=== PATIENT | female | born 1935 | race American Indian/Alaskan Native ===

== ENCOUNTER 2019-08-24 15:15 | Emergency (ER) | payer MEDICARE, OTHER ==
[~2019-08-24] VITALS: Ht 165.1 cm; Wt 79.4 kg
[2019-08-24 16:02] LABS: BASOPHILS ABSOLUTE AUTO 0.04 K/mm3 (0.00-0.23); BASOPHILS PERCENT AUTO 1 % (0-2); EOSINOPHILS ABSOLUTE AUTO 0.27 K/mm3 (0.00-0.68); EOSINOPHILS PERCENT AUTO 3 % (0-6); Hematocrit 45.4 % (33.0-51.0); IMMATURE GRAN ABSOLUTE AUTO 0.01 K/mm3 (0.00-0.10); IMMATURE GRAN PERCENT AUTO 0 % (0-1); LYMPHOCYTES ABSOLUTE AUTO 2.34 K/mm3 (0.84-5.20); LYMPHOCYTES PERCENT AUTO 29 % (21-46); MONOCYTES ABSOLUTE AUTO 0.72 K/mm3 (0.16-1.47); MONOCYTES PERCENT AUTO 9 % (4-13); Mean Corpuscular HGB 31.3 pg (26.0-34.0); Mean Corpuscular Volume 95 fL (80-100); Mean Platelet Volume 9.3 fL (9.1-12.4); NEUTROPHILS ABSOLUTE AUTO 4.81 K/mm3 (1.96-9.15); NEUTROPHILS PERCENT AUTO 59 % (41-73); Platelet Count 269 K/mm3 (150-400); RDW Coefficient Variation 12.4 % (11.7-14.2); RDW Standard Deviation 42.9 fL (35.1-46.3); White Blood Cell Count 8.19 K/mm3 (4.00-11.30)
[2019-08-24 16:23] LABS: Alanine Aminotransfer (ALT/SGP 27 U/L (12-78); Albumin, Blood 3.7 g/dL (3.4-5.0); Albumin/Globulin Ratio 0.9 (0.8-1.8); Alk Phos 93 U/L (50-136); Anion Gap 6 mmol/L (6-16); Aspartate Aminotrans (AST/SGOT 19 U/L (12-37); Bilirubin, Total 0.4 mg/dL (0.1-1.0); Blood Urea Nitrogen 29 mg/dL (8-24); Bun/Creatinine Ratio 32.3 (12.0-20.0); CO2, Blood 26 mmol/L (21-32); Chloride, Blood 105 mmol/L (98-108); Glomerular Filtration Rate >60 (60-); Glucose, Blood 111 mg/dL (70-99); Potassium, Blood 4.4 mmol/L (3.5-5.5); Sodium, Blood 137 mmol/L (136-145); Total Protein, Blood 7.7 g/dL (6.4-8.2)
[2019-08-24] MEDS ORDERED: CARV3.125 (16:56)
[2019-08-24] MEDS ORDERED: LEVSOD50 PO (16:56)
[2019-08-24] MEDS ORDERED: Lisinopril2.5 MG (16:56)
== END 2019-08-24 18:55 | disposition home or self-care (01) ==
LOC: ER 15:15
PROVIDERS: Physician Assistant
DX: I63.9 Cerebral infarction, unspecified (principal); Z88.5 Allergy status to narcotic agent
CPT/HCPCS: 70450; 80053; 85025; 93005; 93010; 99284-25

== ENCOUNTER 2020-11-13 20:41 | Inpatient (IN) | payer MEDICARE, OTHER ==
[~2020-11-13] VITALS: Ht 157.5 cm; Wt 77.1 kg
[~2020-11-13 20:41] MED LIST: CARV3.125 PO; EUTHYROX50 MCG PO; Lisinopril2.5 MG PO
[2020-11-13 21:02] LABS: Hematocrit 39.8 % (33.0-51.0); Mean Corpuscular HGB 32.3 pg (26.0-34.0); Mean Corpuscular HGB Conc 35.2 g/dL (31.5-36.5); Mean Corpuscular Volume 92 fL (80-100); Mean Platelet Volume 9.9 fL (9.1-12.4); Platelet Count 179 K/mm3 (150-400); RDW Coefficient Variation 12.3 % (11.7-14.2); RDW Standard Deviation 41.6 fL (35.1-46.3); Red Blood Cell Count 4.34 M/mm3 (3.80-5.20)
[2020-11-13 21:21] LABS: Alanine Aminotransfer (ALT/SGP 20 U/L (12-78); Albumin/Globulin Ratio 0.7 (0.8-1.8); Alk Phos 103 U/L (50-136); Anion Gap 10 mmol/L (6-16); Aspartate Aminotrans (AST/SGOT 17 U/L (12-37); Bilirubin, Total 0.8 mg/dL (0.1-1.0); Blood Urea Nitrogen 32 mg/dL (8-24); Bun/Creatinine Ratio 26.2 (12.0-20.0); CO2, Blood 22 mmol/L (21-32); Calcium, Blood 8.4 mg/dL (8.5-10.1); Chloride, Blood 103 mmol/L (98-108); Creatinine, Blood 1.22 mg/dL (0.40-1.00); Ethanol (Alcohol), Blood, Med <3 mg/dL; Globulin, Blood 4.2 g/dL (2.2-4.0); Glomerular Filtration Rate 45 (60-); Glucose, Blood 167 mg/dL (70-99); Potassium, Blood 4.2 mmol/L (3.5-5.5); Sodium, Blood 135 mmol/L (136-145); Total Protein, Blood 7.2 g/dL (6.4-8.2)
[2020-11-13 21:33] LABS: BAND PERCENT MAN 18 % (0-8); BASOPHILS PERCENT MAN 0 % (0-2); EOSINOPHILS ABSOLUTE MAN 0.07 K/mm3 (0.00-0.68); EOSINOPHILS PERCENT MAN 1 % (0-6); LYMPHOCYTES ABSOLUTE MAN 0.43 K/mm3 (0.84-5.20); LYMPHOCYTES PERCENT MAN 6 % (21-46); MONOCYTES ABSOLUTE MAN 0.07 K/mm3 (0.16-1.47); MONOCYTES PERCENT MAN 1 % (4-13); NEUTROPHILS ABSOLUTE MAN 6.62 K/mm3 (1.96-9.15); SEG NEUTROPHILS PERCENT MAN 74 % (41-73); TOTAL CELLS COUNTED 100
[2020-11-13 23:02] LABS: U Amphetamine Screen Not Detected; U Barbituate Screen Not Detected; U Benzodiazapine Screen Not Detected; U Buprenorphine Screen Not Detected; U Cannabinoids Screen Not Detected; U Cocaine Screen Not Detected; U Methadone Screen Not Detected; U Methamphetamine Screen Not Detected; U Opiates Screen Not Detected; U Oxycodone Screen Not Detected; U Phencyclidine Screen Not Detected; U Propoxyphene Screen Not Detected
[2020-11-13 23:05] LABS: Source, Urine Catheter
[2020-11-13 23:06] LABS: Bilirubin, Urine Neg (Neg); Blood, Urine 5+ (Neg); Glucose Qualitative, Urine Neg (Neg); Ketones, Urine Neg (Neg); Leukocyte Esterase, Urine 3+ (Neg); Nitrite, Urine Pos (Neg); Protein, Urine 4+ (Neg); Specific Gravity, Urine 1.015 (1.003-1.022); Urobilinogen, Urine NORM (Normal)
[2020-11-13 23:11] LABS: Appearance, Urine Cloudy (Clear); Color, Urine Yellow (P-Yellow)
[2020-11-13 23:12] LABS: Bacteria Many /hpf; Squamous Epithelial Cells Rare /hpf (Few); White Blood Cells, Urine TNTC /hpf (0-5)
--- NOTE | 2020-11-14 06:21 | NUR ---
SHIFT SUMMARY PT IS ALERT AND ORIENTED. PT IS VERY [place]; AT BESIDE TO ASSIST WITH MEDICAL HX AND COMMUNICATION WITH PT. VITALS ARE STABLE AND THERE HAVE BEEN NO ACUTE CHANGES FOR PT SINCE ARRIVAL TO THE FLOOR AT 0245. PT HAS WEAKNESS DUE TO CONDITION BUT AT BASELINE SHE IS ACTIVE. STATES THAT PT HAS DIAGNOSIS OF DM2 AND HYPOTHYROIDISM; WHICH SHE SELF TREATS USING NATURAL TREATMENTS, EXERCISE, AND HEALTHY DIET. SHE DOES MONITOR HER BLOOD SUGARS DAILY.
--- NOTE | 2020-11-14 07:55 | NUR ---
0715 BEDSIDE REPORT received from Kianna. Pt appears to be sleeping in dimly lit room
[2020-11-14 09:02] LABS: Hematocrit 40.1 % (33.0-51.0); Hemoglobin 14.3 g/dL (11.5-16.0); Mean Corpuscular HGB 32.2 pg (26.0-34.0); Mean Corpuscular HGB Conc 35.7 g/dL (31.5-36.5); Mean Corpuscular Volume 90 fL (80-100); Mean Platelet Volume 10.1 fL (9.1-12.4); Platelet Count 158 K/mm3 (150-400); RDW Coefficient Variation 12.5 % (11.7-14.2); RDW Standard Deviation 41.5 fL (35.1-46.3); Red Blood Cell Count 4.44 M/mm3 (3.80-5.20); White Blood Cell Count 25.42 K/mm3 (4.00-11.30)
[2020-11-14 09:22] LABS: Albumin, Blood 2.8 g/dL (3.4-5.0); Albumin/Globulin Ratio 0.7 (0.8-1.8); Bilirubin, Total 0.6 mg/dL (0.1-1.0); Bun/Creatinine Ratio 21.2 (12.0-20.0); Creatinine, Blood 1.56 mg/dL (0.40-1.00); Globulin, Blood 3.9 g/dL (2.2-4.0); Potassium, Blood 4.4 mmol/L (3.5-5.5); Total Protein, Blood 6.7 g/dL (6.4-8.2)
[2020-11-14 09:41] LABS: BAND PERCENT MAN 19 % (0-8); BASOPHILS PERCENT MAN 0 % (0-2); EOSINOPHILS PERCENT MAN 0 % (0-6); LYMPHOCYTES ABSOLUTE MAN 0.76 K/mm3 (0.84-5.20); LYMPHOCYTES PERCENT MAN 3 % (21-46); METAMYELOCYTE ABSOLUTE MAN 0.25 K/mm3 (0.00-0.00); METAMYELOCYTE PERCENT MAN 1 % (0-0); MONOCYTES ABSOLUTE MAN 1.01 K/mm3 (0.16-1.47); MONOCYTES PERCENT MAN 4 % (4-13); NEUTROPHILS ABSOLUTE MAN 23.38 K/mm3 (1.96-9.15); SEG NEUTROPHILS PERCENT MAN 73 % (41-73); TOTAL CELLS COUNTED 100
--- NOTE | 2020-11-14 10:03 | NUR ---
LOVENOX HELD; Pt's states that she had severe hallucinations to injected and oral blood thinners, and that the public school teacher told the pt not to take them.
--- NOTE | 2020-11-14 10:08 | NUR ---
Echocardiogram completed.
[2020-11-14] MEDS ORDERED: DORZOPSO BOTHEYES (14:49)
[2020-11-14] MEDS ORDERED: LATA.005SO BOTHEYES (14:50)
[2020-11-14] MEDS ORDERED: TIMDOROPSO BOTHEYES (14:52)
--- NOTE | 2020-11-14 15:18 | NUR ---
Pt's here, updated on pt condition and plan of treatment. The pt appears to be sleeping; states he thinks that the two rounds of therapy today were tiring for her. cup of coffee provided for the pt's at this time.
--- NOTE | 2020-11-14 18:20 | NUR ---
Pt 's told PCT that he had given the pt Coreg 6.23 at dinner (home medication) as well as her eye drops from home. The pt's then left before I was informed of this. Instructed pt not to take any medications from home while in the hospital.
--- NOTE | 2020-11-14 18:45 | NUR ---
LFA IV infiltrated and RN preceptor removed. New IV placed in RA above wrist.
--- NOTE | 2020-11-14 19:34 | NUR ---
Bedside report given to Sandro.
[2020-11-15 04:04] LABS: BASOPHILS ABSOLUTE AUTO 0.03 K/mm3 (0.00-0.23); BASOPHILS PERCENT AUTO 0 % (0-2); EOSINOPHILS ABSOLUTE AUTO 0.03 K/mm3 (0.00-0.68); EOSINOPHILS PERCENT AUTO 0 % (0-6); Hematocrit 35.3 % (33.0-51.0); Hemoglobin 12.4 g/dL (11.5-16.0); IMMATURE GRAN ABSOLUTE AUTO 0.11 K/mm3 (0.00-0.10); IMMATURE GRAN PERCENT AUTO 1 % (0-1); LYMPHOCYTES ABSOLUTE AUTO 0.85 K/mm3 (0.84-5.20); LYMPHOCYTES PERCENT AUTO 5 % (21-46); MONOCYTES ABSOLUTE AUTO 0.82 K/mm3 (0.16-1.47); MONOCYTES PERCENT AUTO 5 % (4-13); Mean Corpuscular HGB 32.3 pg (26.0-34.0); Mean Corpuscular HGB Conc 35.1 g/dL (31.5-36.5); Mean Corpuscular Volume 92 fL (80-100); Mean Platelet Volume 10.9 fL (9.1-12.4); NEUTROPHILS ABSOLUTE AUTO 14.66 K/mm3 (1.96-9.15); NEUTROPHILS PERCENT AUTO 89 % (41-73); Platelet Count 150 K/mm3 (150-400); RDW Coefficient Variation 12.8 % (11.7-14.2); RDW Standard Deviation 43.3 fL (35.1-46.3); Red Blood Cell Count 3.84 M/mm3 (3.80-5.20)
[2020-11-15 04:30] LABS: Albumin, Blood 2.4 g/dL (3.4-5.0); Anion Gap 7 mmol/L (6-16); Blood Urea Nitrogen 41 mg/dL (8-24); CO2, Blood 24 mmol/L (21-32); Calcium, Blood 7.8 mg/dL (8.5-10.1); Chloride, Blood 106 mmol/L (98-108); Creatinine, Blood 1.52 mg/dL (0.40-1.00); Glomerular Filtration Rate 35 (60-); Glucose, Blood 131 mg/dL (70-99); Phosphorus, Blood 3.3 mg/dL (2.5-4.9); Sodium, Blood 137 mmol/L (136-145)
--- NOTE | 2020-11-15 06:38 | NUR ---
SHIFT SUMMARY PT IS A/O. VERY [place] HAS A DEVICE AT BEDSIDE. VITALS STABLE WITH NO ACUTE CHANGES. DENIES CHEST PAIN OR SOB. PT IS SBA WITH FWW TO BATHROOM.
--- NOTE | 2020-11-16 02:48 | NUR ---
UPDATE PATIENT PLEASENT AND COOPERATIVE. PATIENT SBA WITH FWW TO THE BATHROOM. PATIENT HAS APPEARED TO SLEEP WELL THROUGHOUT THE NIGHT SO FAR. PATIENT RECEIVED ROOM ASSIGNMENT ON MEDICAL FLOOR. ROOM 358. REPORT GIVEN TO KRISTIE LUCIA AT THIS TIME.
--- NOTE | 2020-11-16 03:11 | NUR ---
TRANSFER NOTE PATIENT TRANSFERED UP TO NEW ROOM VIA WHEELCHAIR BY TENTER FEEDER. ALL BELONGING GATHERED AND SENT WITH PATIENT. PATIENT WEARING HER EAR PIECE AND MICROPHONE SET UPON TRANSFER.
--- NOTE | 2020-11-16 03:50 | NUR ---
0300 REPORT RECEIVED FROM KRISTIE MICHEL; PT ARRIVED VIA WHEELCHAIR FROM PCU; ALERT AND ORIENTED X 4; BED ALARM APPLIED FOR SAFETY.
--- NOTE | 2020-11-16 04:32 | NUR ---
SHIFT SUMMARY: 85 Y/O FEMALE RESTED COMFORTABLE SINCE ARRIVAL TO UNIT FROM PCU; DENIES PAIN OR NAUSEA; BED ALARM APPLIED FOR SAFETY, BED LOW POSITION WITH CALL LIGHT AT SIDE.
[2020-11-16] MEDS ORDERED: VISBIOME PROBI1 EACH PO (13:54)
[2020-11-16] MEDS ORDERED: CEPH500 PO (13:55)
--- NOTE | 2020-11-16 16:02 | NUR ---
PT AOX3 AND COOPERATIVE OF CARE. PT HAD ALL PAPERWORK AND EDUCTIONAL MATERIAL REVIEWED AND SIGNED. WAS IN ROOM TO HELP UNDERSTAND INSTRUCTIONS. PT HAD ALL PERSONAL MATERIAL COLLECTED AND TAKEN WITH HER. PT ESCORTED BY AID VIA WHEEL CHAIR TO N ENTRANCE. NO DISTRESS NOTED.
== END 2020-11-16 15:41 | disposition home or self-care (01) | DRG 871 ==
LOC: ER 20:41 → PCU 11-14 02:24 → MEDS 11-16 03:15
PROVIDERS: Internal Medicine; Student in an Organized Health Care Education/Training Program; ADMIT Internal Medicine
DX: A41.51 Sepsis due to Escherichia coli [E. coli] (principal); G92 Toxic encephalopathy; N12 Tubulo-interstitial nephritis, not specified as acute or chronic; N17.9 Acute kidney failure, unspecified; E87.2 Acidosis; Z86.73 Personal history of transient ischemic attack (TIA), and cerebral infarction without residual deficits; E03.9 Hypothyroidism, unspecified; I10 Essential (primary) hypertension; H40.9 Unspecified glaucoma; E11.9 Type 2 diabetes mellitus without complications; R65.20 Severe sepsis without septic shock
CPT/HCPCS: 36415; 51701; 70450; 71045; 73502; 80053; 80069; 81001; 83605; 83690; 83880; 85025; 87077; 87086; 87186; 93005; 93010; 93306; 96361-59; 96365-59; 96375-59; 97110; 97116; 97162; 97165; 97530; 97535; 99285-25; A9270; G0480; J0696; J2405; J7030; J7120

== ENCOUNTER 2021-04-23 15:54 | Emergency (ER) | payer MEDICARE, OTHER ==
[~2021-04-23] VITALS: Ht 157.5 cm; Wt 72.6 kg
[~2021-04-23 15:54] MED LIST changes: +CEPH500 PO; +DORZOPSO BOTHEYES; +LATA.005SO BOTHEYES; +TIMDOROPSO BOTHEYES; +VISBIOME PROBI1 EACH PO
== END 2021-04-23 18:23 | disposition home or self-care (01) ==
LOC: ER 15:54
DX: S06.0X0A Concussion without loss of consciousness, initial encounter (principal); S16.1XXA Strain of muscle, fascia and tendon at neck level, initial encounter; S29.012A Strain of muscle and tendon of back wall of thorax, initial encounter; Z88.5 Allergy status to narcotic agent; Z88.8 Allergy status to other drugs, medicaments and biological substances; Z79.899 Other long term (current) drug therapy; Z86.73 Personal history of transient ischemic attack (TIA), and cerebral infarction without residual deficits; W01.0XXA Fall on same level from slipping, tripping and stumbling without subsequent striking against object, initial encounter
CPT/HCPCS: 70450; 72125; 99283-25

== ENCOUNTER → 2022-12-22 | Outpatient (CLI) | payer MEDICARE, OTHER ==
[2022-12-22 15:25] LABS: Bun/Creatinine Ratio 28.8 (12.0-20.0); Calcium, Blood 9.3 mg/dL (8.5-10.1); Creatinine, Blood 1.18 mg/dL (0.40-1.00); Potassium, Blood 4.3 mmol/L (3.5-5.5)
== END | disposition home or self-care (01) ==
LOC: LAB SHORT 13:12
PROVIDERS: Nurse Practitioner Family
DX: N18.30 Chronic kidney disease, stage 3 unspecified (principal)
CPT/HCPCS: 80048

== ENCOUNTER 2023-04-12 12:02 | Emergency (ER) | payer MEDICARE, OTHER ==
[~2023-04-12] VITALS: Ht 160 cm; Wt 74.4 kg
[2023-04-12 12:33] LABS: Hematocrit 39.8 % (33.0-51.0); Hemoglobin 13.8 g/dL (11.5-16.0); Mean Corpuscular HGB 32.2 pg (26.0-34.0); Mean Corpuscular HGB Conc 34.7 g/dL (31.5-36.5); Mean Corpuscular Volume 93 fL (80-100); Platelet Count 195 K/mm3 (150-400); RDW Coefficient Variation 12.7 % (11.7-14.2); RDW Standard Deviation 43.8 fL (35.1-46.3); Red Blood Cell Count 4.28 M/mm3 (3.80-5.20); White Blood Cell Count 11.66 K/mm3 (4.00-11.30)
[2023-04-12 12:53] LABS: BAND PERCENT MAN 7 % (0-8); BASOPHILS ABSOLUTE MAN 0.23 K/mm3 (0.00-0.23); BASOPHILS PERCENT MAN 2 % (0-2); EOSINOPHILS PERCENT MAN 0 % (0-6); LYMPHOCYTES ABSOLUTE MAN 0.46 K/mm3 (0.84-5.20); LYMPHOCYTES PERCENT MAN 4 % (21-46); MONOCYTES ABSOLUTE MAN 0.34 K/mm3 (0.16-1.47); MONOCYTES PERCENT MAN 3 % (4-13); NEUTROPHILS ABSOLUTE MAN 10.61 K/mm3 (1.96-9.15); SEG NEUTROPHILS PERCENT MAN 84 % (41-73); TOTAL CELLS COUNTED 100
[2023-04-12 12:56] LABS: Albumin, Blood 3.2 g/dL (3.4-5.0); Albumin/Globulin Ratio 0.7 (0.8-1.8); Bilirubin, Total 0.7 mg/dL (0.1-1.0); Bun/Creatinine Ratio 25.2 (12.0-20.0); Calcium, Blood 8.8 mg/dL (8.5-10.1); Creatinine, Blood 1.27 mg/dL (0.40-1.00); Globulin, Blood 4.3 g/dL (2.2-4.0); Potassium, Blood 4.5 mmol/L (3.5-5.5); Total Protein, Blood 7.5 g/dL (6.4-8.2)
[2023-04-12 16:30] VITALS: BP 116/72
== END 2023-04-12 17:16 | disposition home or self-care (01) ==
LOC: ER 12:02
PROVIDERS: Emergency Medicine
DX: S93.602A Unspecified sprain of left foot, initial encounter (principal); M79.671 Pain in right foot; M25.552 Pain in left hip; M25.571 Pain in right ankle and joints of right foot; W19.XXXA Unspecified fall, initial encounter; I10 Essential (primary) hypertension; E03.9 Hypothyroidism, unspecified; E11.9 Type 2 diabetes mellitus without complications; Z88.5 Allergy status to narcotic agent; Z79.899 Other long term (current) drug therapy; Z95.0 Presence of cardiac pacemaker
CPT/HCPCS: 70450; 73502; 73610; 73630; 80053; 83880; 85025; 99284-25

== ENCOUNTER → 2023-05-10 | Outpatient (CLI) | payer MEDICARE, OTHER | END | disposition home or self-care (01) | LOC: LAB 19:15 → LAB SHORT 19:15 | DX: M79.672 Pain in left foot (principal) | CPT/HCPCS: 84550 ==

== ENCOUNTER → 2023-07-06 | Outpatient (CLI) | payer MEDICARE, OTHER ==
[2023-07-06 19:54] LABS: BASOPHILS ABSOLUTE AUTO 0.05 K/mm3 (0.00-0.23); BASOPHILS PERCENT AUTO 1 % (0-2); EOSINOPHILS PERCENT AUTO 5 % (0-6); Hematocrit 40.6 % (33.0-51.0); Hemoglobin 13.7 g/dL (11.5-16.0); IMMATURE GRAN ABSOLUTE AUTO 0.01 K/mm3 (0.00-0.10); IMMATURE GRAN PERCENT AUTO 0 % (0-1); LYMPHOCYTES ABSOLUTE AUTO 2.22 K/mm3 (0.84-5.20); LYMPHOCYTES PERCENT AUTO 29 % (21-46); MONOCYTES ABSOLUTE AUTO 0.59 K/mm3 (0.16-1.47); MONOCYTES PERCENT AUTO 8 % (4-13); Mean Corpuscular HGB 30.6 pg (26.0-34.0); Mean Corpuscular HGB Conc 33.7 g/dL (31.5-36.5); Mean Corpuscular Volume 91 fL (80-100); NEUTROPHILS ABSOLUTE AUTO 4.49 K/mm3 (1.96-9.15); NEUTROPHILS PERCENT AUTO 58 % (41-73); Platelet Count 253 K/mm3 (150-400); RDW Coefficient Variation 13.4 % (11.7-14.2); RDW Standard Deviation 44.7 fL (35.1-46.3); Red Blood Cell Count 4.48 M/mm3 (3.80-5.20); White Blood Cell Count 7.76 K/mm3 (4.00-11.30)
[2023-07-06 20:20] LABS: Thyroid Stimulating Hormone 1.66 uIU/mL (0.360-4.800); Uric Acid, Blood 8.8 mg/dL (2.6-6.0)
[2023-07-07 13:58] LABS: Percent Saturation 19.3 % (15.0-50.0)
== END | disposition home or self-care (01) ==
LOC: LAB 17:44 → LAB SHORT 17:44
PROVIDERS: Nurse Practitioner Family
DX: E03.9 Hypothyroidism, unspecified (principal); M10.9 Gout, unspecified; D72.829 Elevated white blood cell count, unspecified; R73.03 Prediabetes
CPT/HCPCS: 82728; 83036; 83540; 83550; 84443; 84550; 85025

== ENCOUNTER 2023-08-20 11:01 | Inpatient (IN) | payer MEDICARE, OTHER ==
[~2023-08-20] VITALS: Ht 157.5 cm; Wt 66.0 kg
[2023-08-20 11:38] LABS: BASOPHILS ABSOLUTE AUTO 0.03 K/mm3 (0.00-0.23); BASOPHILS PERCENT AUTO 0 % (0-2); EOSINOPHILS ABSOLUTE AUTO 0.02 K/mm3 (0.00-0.68); EOSINOPHILS PERCENT AUTO 0 % (0-6); Hematocrit 43.7 % (33.0-51.0); Hemoglobin 15.1 g/dL (11.5-16.0); IMMATURE GRAN ABSOLUTE AUTO 0.02 K/mm3 (0.00-0.10); IMMATURE GRAN PERCENT AUTO 0 % (0-1); LYMPHOCYTES PERCENT AUTO 21 % (21-46); MONOCYTES ABSOLUTE AUTO 0.48 K/mm3 (0.16-1.47); MONOCYTES PERCENT AUTO 5 % (4-13); Mean Corpuscular HGB 30.7 pg (26.0-34.0); Mean Corpuscular HGB Conc 34.6 g/dL (31.5-36.5); Mean Corpuscular Volume 89 fL (80-100); Mean Platelet Volume 9.5 fL (9.1-12.4); NEUTROPHILS ABSOLUTE AUTO 6.59 K/mm3 (1.96-9.15); NEUTROPHILS PERCENT AUTO 73 % (41-73); Platelet Count 225 K/mm3 (150-400); RDW Coefficient Variation 13.1 % (11.7-14.2); RDW Standard Deviation 42.5 fL (35.1-46.3); Red Blood Cell Count 4.92 M/mm3 (3.80-5.20); White Blood Cell Count 9.04 K/mm3 (4.00-11.30)
[2023-08-20 12:21] LABS: Albumin, Blood 3.5 g/dL (3.4-5.0); Albumin/Globulin Ratio 0.9 (0.8-1.8); Bilirubin, Total 0.6 mg/dL (0.1-1.0); Bun/Creatinine Ratio 28.8 (12.0-20.0); Creatinine, Blood 1.11 mg/dL (0.40-1.00); Magnesium, Blood 2.3 mg/dL (1.6-2.4); Potassium, Blood 4.6 mmol/L (3.5-5.5); Total Protein, Blood 7.5 g/dL (6.4-8.2)
[2023-08-20 14:03] LABS: Source, Urine Clean Catch
[2023-08-20 14:07] LABS: Appearance, Urine Cloudy (Clear); Bilirubin, Urine Neg (Neg); Blood, Urine Neg (Neg); Color, Urine Yellow (P-Yellow); Glucose Qualitative, Urine Neg (Neg); Ketones, Urine Neg (Neg); Leukocyte Esterase, Urine 2+ (Neg); Nitrite, Urine Pos (Neg); Protein, Urine 2+ (Neg); Urobilinogen, Urine NORM (Normal); pH, Urine 6.5 (5.0-8.0)
[2023-08-20 14:21] LABS: Bacteria Many /hpf; Red Blood Cells, Urine 0-2 /hpf (0-2); Squamous Epithelial Cells Few /hpf (Few)
[2023-08-20 16:24] VITALS: BP 184/68
[2023-08-20 17:10] LABS: Anti-Xa UFH, PHA Monitoring <0.10 IU/mL; International Normalized Ratio 0.98; Prothrombin Time Results 10.3 Sec (9.7-11.5)
--- NOTE | 2023-08-20 18:24 | NUR ---
TRANSFER TO MEDICAL FLOOR AT 1425- ARRIVED IN STABLE CONDITION AFTER RECEIVING REPORT FROM ER NURSE.
--- NOTE | 2023-08-20 18:25 | NUR ---
SUMMARY- PT AAOX4 SINCE ADMISSION. PT ANSWERED ALL ORIENTATION QUESTIONS CORRECTLY. SLOW TO RESPOND AND SEVERELY [place]. BEDREST THIS SHIFT. NO COMPLAINTS OF CHEST PAIN/PRESSURE. PT ON HEPARIN DRIP CURRENTLY.
[2023-08-20 21:01] VITALS: BP 145/51
[2023-08-21 01:54] LABS: BASOPHILS ABSOLUTE AUTO 0.07 K/mm3 (0.00-0.23); BASOPHILS PERCENT AUTO 1 % (0-2); EOSINOPHILS ABSOLUTE AUTO 0.22 K/mm3 (0.00-0.68); EOSINOPHILS PERCENT AUTO 3 % (0-6); Hematocrit 41.8 % (33.0-51.0); Hemoglobin 14.2 g/dL (11.5-16.0); IMMATURE GRAN ABSOLUTE AUTO 0.04 K/mm3 (0.00-0.10); IMMATURE GRAN PERCENT AUTO 1 % (0-1); LYMPHOCYTES ABSOLUTE AUTO 2.57 K/mm3 (0.84-5.20); LYMPHOCYTES PERCENT AUTO 32 % (21-46); MONOCYTES ABSOLUTE AUTO 0.67 K/mm3 (0.16-1.47); MONOCYTES PERCENT AUTO 8 % (4-13); Mean Corpuscular HGB 31.1 pg (26.0-34.0); Mean Corpuscular Volume 92 fL (80-100); NEUTROPHILS ABSOLUTE AUTO 4.57 K/mm3 (1.96-9.15); NEUTROPHILS PERCENT AUTO 56 % (41-73); Platelet Count 204 K/mm3 (150-400); RDW Coefficient Variation 13.4 % (11.7-14.2); RDW Standard Deviation 45.2 fL (35.1-46.3); Red Blood Cell Count 4.56 M/mm3 (3.80-5.20); White Blood Cell Count 8.14 K/mm3 (4.00-11.30)
[2023-08-21 01:59] LABS: Albumin, Blood 3.3 g/dL (3.4-5.0); Albumin/Globulin Ratio 0.8 (0.8-1.8); Bilirubin, Total 0.5 mg/dL (0.1-1.0); Bun/Creatinine Ratio 28.6 (12.0-20.0); Calcium, Blood 8.6 mg/dL (8.5-10.1); Creatinine, Blood 1.12 mg/dL (0.40-1.00); Globulin, Blood 3.9 g/dL (2.2-4.0); Potassium, Blood 4.9 mmol/L (3.5-5.5); Total Protein, Blood 7.2 g/dL (6.4-8.2)
[2023-08-21 05:12] VITALS: BP 161/83
--- NOTE | 2023-08-21 05:17 | NUR ---
NOC SHIFT SUMMARY: PT. CONTINUES TO PULL TELE LEADS OFF AND PULLED IV LINE OUT. NEW LINE PLACED. WRIST RESTRAINTS IN PLACE. PATIENT NOT ABLE TO BE REDIRECTED. TROPONIN IS TRENDING DOWN. NO C/O PAIN. PATIENT ALERT TO SELF ONLY. INVOLVED IN CARE. BED IN LOW POSITION. CALL LIGHT WITHIN REACH.
[2023-08-21 08:13] VITALS: BP 175/85
[2023-08-21 13:05] LABS: U Amphetamine Screen Not Detected; U Barbituate Screen Not Detected; U Benzodiazapine Screen Not Detected; U Buprenorphine Screen Not Detected; U Cannabinoids Screen Not Detected; U Cocaine Screen Not Detected; U Methadone Screen Not Detected; U Methamphetamine Screen Not Detected; U Opiates Screen Not Detected; U Oxycodone Screen Not Detected; U Phencyclidine Screen Not Detected
[2023-08-21 16:41] VITALS: BP 203/88
[2023-08-21 17:38] VITALS: BP 188/81
--- NOTE | 2023-08-21 18:43 | NUR ---
SHIFT SUMMARY: PT IS AN 87 YEAR OLD FEMALE FOR GENERALIZED WEAKNESS, LEFT SIDED WEAKNESS, AND ALTERED MENTAL STATUS. DEMAND ISCHEMIA VS AL VS ANGIA VS HYPERTENSION CRISIS. PATIENT IS BEING TREATED FOR AN UTI AND PLANS TO HAVE A REPEAT CT OF HEAD TOMORROW FOR FURTHER EVALUATION. SHE HAS HAD VISION HALLUCINATIONS AND PROGRESSIVELY WORSENED THROUGHOUT THE DAY AND WITH HER TRYING TO CLIMB OUT OF BED. SHE VOICES "SHE NEEDS TO GO HOME AND GO TO BED." PT IS REDIRECTABLE, BUT IT HAS TO BE CONTINOUS. PATIENT'S AT BEDSIDE ALL DAY AND WAS ABLE TO HELP WITH REDIRECTING PATIENT AND ASSISTING WITH PATIENT CARE, BUT ONCE HE WENT HOME, PATIENT'S ANXIOUSNESS INCREASED AND WAS MORE DIFFICULT TO REDIRECT TO REMAIN IN BED. SHE IS A HEAVY 2 PERSON ASSIST TO THE BEDSIDE COMMODE, REPOSITIONING, AND CHANGING IF NEEDED. SHE IS WEAK AND LEVEL OF COGNITION AT THIS TIME INHIBITS HER ABLITIES TO FOLLOW DIRECTIONS AND MOVE EFFICIENTLY. TELEMETRY CALLED AT 1122 THAT THE PATIENT WAS DISPLAYING ST ELEVATION OF 2.2. SPENCER CONTACTED AND EKG COMPLETED, SHOWING ST ELEVATION. DR. PALMER NOTIFIED AND CAME AND REVIEW. PATIENT DENIED CHEST PAIN OR SHORTNESS OF BREATH. HYPERTENSION: CALLED DR. PALMER AND GOT ORDERES TO TREAT. 6.25 MG OF COREG AND 10 MG OF LABETALOL GIVEN; 30 MIN AFTER BP REMAINED SYSTOLIC OF 188. ORDERS FOR 10 MG OF HYDRALAZINE GIVEN. SHE WAS MOVED TO THE BACK [place] TO ROOM 347. BEDSIDE REPORT GIVEN TO NURSE ASSUME CARE OF PATIENT.
--- NOTE | 2023-08-21 19:17 | NUR ---
PT ARRIVED TO ROOM AROUND 1840. CONFUSED. UNABLE TO ANSWER ANY QUESTIONS. ATTEMPTING TO GET OUT OF BED UNSAFELY AND PULLING AT IV AND TELE LINES. PULLING GOWN OFF AND THROWING ITEMS. UNABLE TO REDIRECT. DR. PALMER NOTIFIED. IMPLEMENTED SOFT WRIST RESTAINTS. BED IS IN THE LOWEST POSITION WITH CALL LIGHT IN REACH. UNABLE TO MAKE NEEDS KNOWN.
[2023-08-21 20:23] VITALS: BP 146/58
[2023-08-22 02:59] VITALS: BP 149/70
--- NOTE | 2023-08-22 04:11 | NUR ---
SHIFT SUMMARY PATIENT HAD NO ACUTE CHANGES. ALERT TO SELF AND BEDREST, UNABLE TO ANSWER QUESTIONS AT THIS TIME. WRIST RESTRAINTS IN PLACE PER ORDERS FOR PULLING AT LINES, CORDS, AND IV. NO S/SX OF PAIN, SOB, AND N/V. VSS/AFEBRILE. CALLED AND REPORTS WILL BE IN AT 8 AM. CALL LIGHT IN REACH. BED IN LOWEST POSITION. WILL CONTINUE TO MONITOR UNTIL DAY SHIFT NURSE ASSUMES CARE.
[2023-08-22 06:27] LABS: Bun/Creatinine Ratio 27.5 (12.0-20.0); Creatinine, Blood 1.09 mg/dL (0.40-1.00); Potassium, Blood 4.1 mmol/L (3.5-5.5)
[2023-08-22 07:36] VITALS: BP 176/70
--- NOTE | 2023-08-22 09:00 | NUR ---
DR. GASPAR AT BEDSIDE. PT MUMBLING AND INCOHERENT BUT SUDDENLY ABLE TO COMMUNICATE CLEARLY. ALERT AND ORIENTED TO SELF AND , SHE THOUGHT SHE WAS IN HER HOME. SHE WAS ABLE TO IDENTIFY HER SPOUSE. CBG 100. BLADDER SCAN 460. WILL GIVE PT SOME MORE TIME TO TRY TO URINATE ON HER OWN BEFORE CATH. DR. GASPAR AWARE. REMOVED SOFT WRIST RESTRAINTS.
[2023-08-22 16:06] VITALS: BP 159/61
--- NOTE | 2023-08-22 16:49 | NUR ---
PT IS ALERT AND ORIENTED TO SELF AND SPOUSE. NO ATTEMPTS TO CRAWL OUT OF BED OR PULL ON LINES SINCE SPOUSE HAS BEEN AT BEDSIDE. PT AND SPOUSE REQUESTED THIN WATER. EDUCATION PROVIDED ON RISK OF ASPIRATION. THEY STATED THAT "THEY ARE WILLING TO TAKE THAT CHANCE IF IT GETS HER DRINKING WATER". PT APPEARS TO BE STRONGER AND MORE COHERENT THIS AFTERNOON THAT THIS MORNING. USE OF BEDSIDE COMMODE WITH 2 PERSON ASSIST AND GAIT BELT. BED IS IN THE LOWEST POSITION WITH CALL LIGHT IN REACH. SPOUSE AT BEDSIDE
[2023-08-22 19:28] VITALS: BP 178/75
--- NOTE | 2023-08-22 21:05 | NUR ---
PATIENT HAVING INCREASED AGITATION. PULLING AT LINES, CORDS, AND PULLING GOWN OFF. STARTING TO KICK AND OOB ATTEMPTS. HOSPITALIST XIANG MCDOWELL NOTIFIED AND ORDERED BILATERAL SOFT WRIST RESTRAINTS.
--- NOTE | 2023-08-22 21:44 | NUR ---
HOSPITALIST XIANG MCDOWELL ORDERED IV HALDOL 5 MG Q6 PRN FOR AGITATION. PATIENT KICKING AT STAFF AND CURSING.
--- NOTE | 2023-08-22 22:54 | NUR ---
HOSPITALIST XIANG WAX ROOM SUPERVISOR CHANGE IV HALDOL TO IM ATIVAN 1 MG, IV BENADRYL 25 MG X ONE AND IM ZYPREXA 5 MG Q6 PRN FOR AGITATION.
--- NOTE | 2023-08-22 23:28 | NUR ---
IM BENADRYL 25 MG GIVEN X ONE AND IM ATIVAN 1 MG GIVEN X ONE. XIANG CHEMIST ORGANIC REPORTS IF AGITATION DOESN'T DECREASE THAN GIVE IM ZYPREXA 5 MG NEXT. WCTM.
--- NOTE | 2023-08-23 04:07 | NUR ---
SHIFT SUMMARY ALERT TO SELF AND BEDREST. PATIENT HAD INCREASED AGITATION AND RESTRAINTS DC ON DAY SHIFT. PATIENT PULLED TWO PIVS, PULLED AT LINES, CORDS AND PULLING GOWN OFF. KICKING AND YELLING AT STAFF. HOSPITALIST XIANG MIGRATION SPECIALIST ORDERED BILATERAL SOFT WRIST RESTRAINTS AND IM ATIVAN 1 MG AND IM BENADRYL 25 MG FOR AGITATION. PATIENT LESS AGITATED. DENIES CHEST PAIN, SOB, AND N/V. HYPERTENSIVE/AFEBRILE. TELE MONITOR AV PACED 68. PIV REPLACED. CALL LIGHT IN REACH. BED IN LOWEST POSITION AND ALARM ACTIVATED. WILL CONTINUE TO MONITOR UNTIL DAY SHIFT NURSE ASSUMES CARE.
[2023-08-23 04:57] VITALS: BP 190/69
[2023-08-23 06:01] VITALS: BP 116/71
--- NOTE | 2023-08-23 06:05 | NUR ---
BP 190/69 AND IV APRESOLINE 20 MG GIVEN FOR SBP >180 PER ORDER BP 116/71 ON RECHECK.
[2023-08-23 07:13] VITALS: BP 137/56
[2023-08-23 09:19] LABS: BASOPHILS ABSOLUTE AUTO 0.05 K/mm3 (0.00-0.23); BASOPHILS PERCENT AUTO 0 % (0-2); EOSINOPHILS ABSOLUTE AUTO 0.15 K/mm3 (0.00-0.68); EOSINOPHILS PERCENT AUTO 1 % (0-6); Hematocrit 43.7 % (33.0-51.0); IMMATURE GRAN ABSOLUTE AUTO 0.04 K/mm3 (0.00-0.10); IMMATURE GRAN PERCENT AUTO 0 % (0-1); LYMPHOCYTES ABSOLUTE AUTO 1.56 K/mm3 (0.84-5.20); LYMPHOCYTES PERCENT AUTO 12 % (21-46); MONOCYTES ABSOLUTE AUTO 0.94 K/mm3 (0.16-1.47); MONOCYTES PERCENT AUTO 7 % (4-13); Mean Corpuscular HGB 30.8 pg (26.0-34.0); Mean Corpuscular HGB Conc 34.3 g/dL (31.5-36.5); Mean Corpuscular Volume 90 fL (80-100); Mean Platelet Volume 9.4 fL (9.1-12.4); NEUTROPHILS ABSOLUTE AUTO 10.15 K/mm3 (1.96-9.15); NEUTROPHILS PERCENT AUTO 79 % (41-73); Platelet Count 217 K/mm3 (150-400); RDW Coefficient Variation 13.3 % (11.7-14.2); RDW Standard Deviation 43.8 fL (35.1-46.3); Red Blood Cell Count 4.87 M/mm3 (3.80-5.20); White Blood Cell Count 12.89 K/mm3 (4.00-11.30)
[2023-08-23 09:37] LABS: Bun/Creatinine Ratio 30.7 (12.0-20.0); Calcium, Blood 8.7 mg/dL (8.5-10.1); Creatinine, Blood 1.01 mg/dL (0.40-1.00); Potassium, Blood 3.8 mmol/L (3.5-5.5)
--- NOTE | 2023-08-23 11:24 | NUR ---
CALLED, RESTRAINTS D/AL PER PHYSICIAN ORDERS PT IS NO LONGER ATTEMPTING TO PULL OUT LINES.
[2023-08-23 15:08] VITALS: BP 155/68
--- NOTE | 2023-08-23 16:15 | NUR ---
SHIFT SUMMARY PT RESPONDS TO VERBAL STIMULI BUT DOES NOT ANSWER QUESTIONS, AND IS NOT ORIENTED. PT WAS IN SOFT RESTRAINTS DURING START OF SHIFT DUE TO PULLING OUT LINES AND BEING IMPULSIVE. THIS MORNING SHE WAS STILL SOMNOLENT DUE TO PREVIOUS IM INJECTION OF ATIVAN. PT SPOUSE AT BEDSIDE. THE PT SHOWED NO IMPULSIVITY OR ATTEMPTS TO REMOVE LINES, SOFT RESTRAINTS D/AL AT 1130, NO COMPLICATIONS DURING MY SHIFT. PT VSS. NO ACUTE EVENTS AT THIS TIME. PT TO D/C HOME TOMMOROW. PT LEFT IN A POSITION OF SAFEY WITH FALL PRECAUTIONS IN PLACE AND CALL LIGHT WITHIN REACH.
[2023-08-23 20:31] VITALS: BP 145/54
--- NOTE | 2023-08-24 04:26 | NUR ---
SHIFT SUMMARY ISSACA WAS DROWSY AND ORIENTED TO SELF, PERSON AND PLACE ON ASSESSMENT. PT'S PRESENT AT BEDSIDE T/O THE NIGHT. PT'S MENTATION HAS IMPROVED FROM THIS MORNING PER REPORT AND PT . PT IS A HEAVY 2 PERSON ASSIST TO BEDSIDE COMMODE. NO ACUTE EVENTS TONIGHT, NO NOTED CHANGES IN CONDITION OTHER THAN IMPROVING MENTATION. WILL CONTINUE TO MONITOR. PT IN BED AT A LOW POSITION WITH CALL LIGHT IN REACH AND AT BEDSIDE
[2023-08-24 04:30] VITALS: BP 184/62
[2023-08-24 05:07] LABS: BASOPHILS ABSOLUTE AUTO 0.03 K/mm3 (0.00-0.23); BASOPHILS PERCENT AUTO 0 % (0-2); EOSINOPHILS ABSOLUTE AUTO 0.05 K/mm3 (0.00-0.68); EOSINOPHILS PERCENT AUTO 0 % (0-6); Hematocrit 44.2 % (33.0-51.0); IMMATURE GRAN ABSOLUTE AUTO 0.03 K/mm3 (0.00-0.10); IMMATURE GRAN PERCENT AUTO 0 % (0-1); LYMPHOCYTES ABSOLUTE AUTO 1.29 K/mm3 (0.84-5.20); LYMPHOCYTES PERCENT AUTO 9 % (21-46); MONOCYTES ABSOLUTE AUTO 1.17 K/mm3 (0.16-1.47); MONOCYTES PERCENT AUTO 8 % (4-13); Mean Corpuscular HGB 30.6 pg (26.0-34.0); Mean Corpuscular HGB Conc 33.9 g/dL (31.5-36.5); Mean Corpuscular Volume 90 fL (80-100); NEUTROPHILS PERCENT AUTO 82 % (41-73); Platelet Count 230 K/mm3 (150-400); RDW Coefficient Variation 13.4 % (11.7-14.2); RDW Standard Deviation 44.6 fL (35.1-46.3); White Blood Cell Count 14.17 K/mm3 (4.00-11.30)
[2023-08-24 05:29] LABS: Bun/Creatinine Ratio 28.9 (12.0-20.0); Calcium, Blood 8.8 mg/dL (8.5-10.1); Creatinine, Blood 0.97 mg/dL (0.40-1.00); Potassium, Blood 3.8 mmol/L (3.5-5.5)
[2023-08-24 07:12] VITALS: BP 160/76
[2023-08-24] MEDS ORDERED: VISBIOME 112.51 EACH PO (14:07)
[2023-08-24] MEDS ORDERED: ASPI81CH PO (14:07)
[2023-08-24] MEDS ORDERED: ATOR40TA PO (14:07)
--- NOTE | 2023-08-24 15:21 | NUR ---
PT DISCHARGED THE PTS VERBALIZED UNDERSTANDING OF THE DC INSTRUCTIONS. PTS PRESCRIPTIONS WERE FAXED TO [facility] REQUESTED. A FOLLOW UP APPOINTMENT WAS SCHEDULED FOR THE PT PRIOR TO DC. THE PT WAS TRANSFERED VIA WHEELCHAIR ACCOMPANIED BY THE SUPERVISOR BLAST FURNACE AND HER
== END 2023-08-24 14:23 | disposition home or self-care (01) | DRG 280 ==
LOC: ER 11:01 → MEDS 11:02 → ENPENDDIS 08-24 13:35 → MEDS 08-24 14:23
PROVIDERS: Family Medicine; Physician Assistant; Student in an Organized Health Care Education/Training Program; ADMIT Hospitalist
DX: I16.1 Hypertensive emergency (principal); G92.8 Other toxic encephalopathy; I21.A1 Myocardial infarction type 2; N39.0 Urinary tract infection, site not specified; N17.9 Acute kidney failure, unspecified; B96.20 Unspecified Escherichia coli [E. coli] as the cause of diseases classified elsewhere; E03.9 Hypothyroidism, unspecified; Z66 Do not resuscitate; I44.7 Left bundle-branch block, unspecified; I10 Essential (primary) hypertension; Z95.0 Presence of cardiac pacemaker; Z88.8 Allergy status to other drugs, medicaments and biological substances; Z88.5 Allergy status to narcotic agent; Z79.890 Hormone replacement therapy; Z78.1 Physical restraint status
CPT/HCPCS: 36415; 70450; 80048; 80053; 81001; 82947; 83735; 84484; 85025; 85520; 85610; 85730; 87077; 87086; 87186; 92526; 92610; 93005; 93010; 93306; 96360; 97162; 97530; 99285-25; A9270; J0360; J0696; J1200; J1644; J2060; J7030; J7050; J7120

== ENCOUNTER → 2023-09-02 | Outpatient (CLI) | payer MEDICARE, OTHER ==
[~2023-09-02] MED LIST changes: +ASPI81CH PO; +ATOR40TA PO; +VISBIOME 112.51 EACH PO
[2023-09-02 18:27] LABS: BASOPHILS ABSOLUTE AUTO 0.04 K/mm3 (0.00-0.23); BASOPHILS PERCENT AUTO 1 % (0-2); EOSINOPHILS ABSOLUTE AUTO 0.14 K/mm3 (0.00-0.68); EOSINOPHILS PERCENT AUTO 2 % (0-6); Hemoglobin 14.1 g/dL (11.5-16.0); IMMATURE GRAN ABSOLUTE AUTO 0.03 K/mm3 (0.00-0.10); IMMATURE GRAN PERCENT AUTO 0 % (0-1); LYMPHOCYTES ABSOLUTE AUTO 1.63 K/mm3 (0.84-5.20); LYMPHOCYTES PERCENT AUTO 22 % (21-46); MONOCYTES PERCENT AUTO 7 % (4-13); Mean Corpuscular HGB 30.6 pg (26.0-34.0); Mean Corpuscular HGB Conc 33.6 g/dL (31.5-36.5); Mean Corpuscular Volume 91 fL (80-100); Mean Platelet Volume 10.5 fL (9.1-12.4); NEUTROPHILS ABSOLUTE AUTO 5.17 K/mm3 (1.96-9.15); NEUTROPHILS PERCENT AUTO 69 % (41-73); Platelet Count 330 K/mm3 (150-400); RDW Coefficient Variation 12.9 % (11.7-14.2); RDW Standard Deviation 43.1 fL (35.1-46.3); Red Blood Cell Count 4.61 M/mm3 (3.80-5.20); White Blood Cell Count 7.51 K/mm3 (4.00-11.30)
[2023-09-04 09:28] LABS: A/G RATIO 1.6 (1.2-2.2); BILIRUBIN, TOTAL 0.4 mg/dL (0.0-1.2); CALCIUM, SERUM 9.6 mg/dL (8.7-10.3); CREATININE, SERUM 1.28 mg/dL (0.57-1.00); GLOBULIN, TOTAL 2.7 g/dL (1.5-4.5); PROTEIN, TOTAL, SERUM 6.9 g/dL (6.0-8.5)
== END ==
LOC: LAB 13:05 → LAB SHORT 13:05
PROVIDERS: Nurse Practitioner Family
DX: I10 Essential (primary) hypertension (principal)
CPT/HCPCS: 80053; 85025

== ENCOUNTER 2023-12-25 12:55 | Emergency (ER) | payer MEDICARE, OTHER ==
[~2023-12-25] VITALS: Ht 160 cm; Wt 69.8 kg
[2023-12-25] MEDS ORDERED: LISI20 PO (13:11)
[2023-12-25 13:19] LABS: BASOPHILS ABSOLUTE AUTO 0.06 K/mm3 (0.00-0.23); BASOPHILS PERCENT AUTO 1 % (0-2); EOSINOPHILS ABSOLUTE AUTO 0.39 K/mm3 (0.00-0.68); EOSINOPHILS PERCENT AUTO 3 % (0-6); Hematocrit 43.7 % (33.0-51.0); Hemoglobin 14.8 g/dL (11.5-16.0); IMMATURE GRAN ABSOLUTE AUTO 0.03 K/mm3 (0.00-0.10); IMMATURE GRAN PERCENT AUTO 0 % (0-1); LYMPHOCYTES ABSOLUTE AUTO 1.77 K/mm3 (0.84-5.20); LYMPHOCYTES PERCENT AUTO 14 % (21-46); MONOCYTES PERCENT AUTO 6 % (4-13); Mean Corpuscular HGB 31.8 pg (26.0-34.0); Mean Corpuscular HGB Conc 33.9 g/dL (31.5-36.5); Mean Corpuscular Volume 94 fL (80-100); Mean Platelet Volume 9.5 fL (9.1-12.4); NEUTROPHILS ABSOLUTE AUTO 9.71 K/mm3 (1.96-9.15); NEUTROPHILS PERCENT AUTO 77 % (41-73); Platelet Count 218 K/mm3 (150-400); RDW Coefficient Variation 12.9 % (11.7-14.2); RDW Standard Deviation 44.2 fL (35.1-46.3); Red Blood Cell Count 4.66 M/mm3 (3.80-5.20); White Blood Cell Count 12.66 K/mm3 (4.00-11.30)
[2023-12-25 13:38] LABS: Albumin, Blood 3.6 g/dL (3.4-5.0); Albumin/Globulin Ratio 0.9 (0.8-1.8); Bilirubin, Total 0.7 mg/dL (0.1-1.0); Bun/Creatinine Ratio 19.7 (12.0-20.0); Calcium, Blood 9.4 mg/dL (8.5-10.1); Creatinine, Blood 1.17 mg/dL (0.40-1.00); Potassium, Blood 4.6 mmol/L (3.5-5.5); Total Protein, Blood 7.6 g/dL (6.4-8.2)
[2023-12-25 13:59] LABS: Source, Urine Straight Cath
[2023-12-25 14:02] LABS: Appearance, Urine Hazy (Clear); Bilirubin, Urine Neg (Neg); Blood, Urine 1+ (Neg); Color, Urine Yellow (P-Yellow); Glucose Qualitative, Urine Neg (Neg); Ketones, Urine Neg (Neg); Leukocyte Esterase, Urine 3+ (Neg); Nitrite, Urine Pos (Neg); Protein, Urine 3+ (Neg); Specific Gravity, Urine 1.015 (1.003-1.022); Urobilinogen, Urine NORM (Normal)
[2023-12-25 14:11] LABS: Bacteria Many /hpf; Renal Epithelial Rare /hpf (0-Rare); Squamous Epithelial Cells Mod /hpf (Few); Transitional Epithelial Cells Rare /hpf (0-Rare); White Blood Cells, Urine 25-50 /hpf (0-5)
[2023-12-25] MEDS ORDERED: CefTRIAXone Sodium 1,000 MG in NS 100 ML IV ONE (14:20)
[2023-12-25] MEDS ORDERED: CEFD300 PO (14:24)
[2023-12-25 15:30] VITALS: BP 158/109
== END 2023-12-25 15:33 | disposition home or self-care (01) ==
LOC: ER 12:55
PROVIDERS: Emergency Medicine
DX: N39.0 Urinary tract infection, site not specified (principal); Z88.5 Allergy status to narcotic agent; Z88.8 Allergy status to other drugs, medicaments and biological substances; Z79.899 Other long term (current) drug therapy; I10 Essential (primary) hypertension; E03.9 Hypothyroidism, unspecified; E11.9 Type 2 diabetes mellitus without complications
CPT/HCPCS: 70450; 80053; 81001; 85025; 87077; 87086; 87186; 93005; 93010; 96365; 99285-25; J0696

== ENCOUNTER → 2024-06-30 | Outpatient (CLI) | payer MEDICARE, OTHER ==
[~2024-06-30] MED LIST changes: +CEFD300 PO; +LISI20 PO
== END | disposition home or self-care (01) ==
LOC: LAB 17:11 → LAB SHORT 17:11
DX: N39.0 Urinary tract infection, site not specified (principal)
CPT/HCPCS: 87077; 87086; 87186

== ENCOUNTER → 2024-07-24 | Outpatient (CLI) | payer MEDICARE, OTHER ==
[2024-07-24 17:55] LABS: BASOPHILS ABSOLUTE AUTO 0.04 K/mm3 (0.00-0.23); BASOPHILS PERCENT AUTO 1 % (0-2); EOSINOPHILS PERCENT AUTO 2 % (0-6); Hematocrit 42.5 % (33.0-51.0); Hemoglobin 14.6 g/dL (11.5-16.0); IMMATURE GRAN ABSOLUTE AUTO 0.03 K/mm3 (0.00-0.10); IMMATURE GRAN PERCENT AUTO 0 % (0-1); LYMPHOCYTES ABSOLUTE AUTO 1.52 K/mm3 (0.84-5.20); LYMPHOCYTES PERCENT AUTO 17 % (21-46); MONOCYTES PERCENT AUTO 7 % (4-13); Mean Corpuscular HGB Conc 34.4 g/dL (31.5-36.5); Mean Corpuscular Volume 93 fL (80-100); Mean Platelet Volume 10.8 fL (9.1-12.4); NEUTROPHILS ABSOLUTE AUTO 6.42 K/mm3 (1.96-9.15); NEUTROPHILS PERCENT AUTO 73 % (41-73); Platelet Count 235 K/mm3 (150-400); RDW Coefficient Variation 12.7 % (11.7-14.2); RDW Standard Deviation 43.1 fL (35.1-46.3); Red Blood Cell Count 4.56 M/mm3 (3.80-5.20); White Blood Cell Count 8.81 K/mm3 (4.00-11.30)
[2024-07-24 18:14] LABS: Albumin, Blood 3.2 g/dL (3.4-5.0); Albumin/Globulin Ratio 0.9 (0.8-1.8); Bilirubin, Total 0.5 mg/dL (0.1-1.0); Bun/Creatinine Ratio 27.9 (12.0-20.0); Calcium, Blood 9.3 mg/dL (8.5-10.1); Creatinine, Blood 0.9 mg/dL (0.40-1.00); Globulin, Blood 3.6 g/dL (2.2-4.0); Potassium, Blood 4.8 mmol/L (3.5-5.5); Thyroid Stimulating Hormone 2.82 uIU/mL (0.360-4.800); Total Protein, Blood 6.8 g/dL (6.4-8.2)
== END | disposition home or self-care (01) ==
LOC: LAB 16:20 → LAB SHORT 16:20
PROVIDERS: Nurse Practitioner Family
DX: E03.9 Hypothyroidism, unspecified (principal); I10 Essential (primary) hypertension
CPT/HCPCS: 80053; 84443; 85025

== ENCOUNTER 2024-09-08 18:35 | Emergency (ER) | payer MEDICARE, OTHER ==
[~2024-09-08] VITALS: Ht 162.6 cm; Wt 69.4 kg
[2024-09-08 19:51] LABS: BASOPHILS ABSOLUTE AUTO 0.05 K/mm3 (0.00-0.23); BASOPHILS PERCENT AUTO 1 % (0-2); EOSINOPHILS ABSOLUTE AUTO 0.28 K/mm3 (0.00-0.68); EOSINOPHILS PERCENT AUTO 3 % (0-6); Hematocrit 43.1 % (33.0-51.0); Hemoglobin 14.9 g/dL (11.5-16.0); IMMATURE GRAN ABSOLUTE AUTO 0.02 K/mm3 (0.00-0.10); IMMATURE GRAN PERCENT AUTO 0 % (0-1); LYMPHOCYTES ABSOLUTE AUTO 1.89 K/mm3 (0.84-5.20); LYMPHOCYTES PERCENT AUTO 21 % (21-46); MONOCYTES ABSOLUTE AUTO 0.61 K/mm3 (0.16-1.47); MONOCYTES PERCENT AUTO 7 % (4-13); Mean Corpuscular HGB Conc 34.6 g/dL (31.5-36.5); Mean Corpuscular Volume 93 fL (80-100); Mean Platelet Volume 9.8 fL (9.1-12.4); NEUTROPHILS ABSOLUTE AUTO 6.37 K/mm3 (1.96-9.15); NEUTROPHILS PERCENT AUTO 69 % (41-73); Platelet Count 243 K/mm3 (150-400); RDW Coefficient Variation 12.9 % (11.7-14.2); RDW Standard Deviation 43.5 fL (35.1-46.3); Red Blood Cell Count 4.65 M/mm3 (3.80-5.20); White Blood Cell Count 9.22 K/mm3 (4.00-11.30)
[2024-09-08 20:14] LABS: Albumin, Blood 3.4 g/dL (3.4-5.0); Albumin/Globulin Ratio 0.8 (0.8-1.8); Bilirubin, Total 0.4 mg/dL (0.1-1.0); Bun/Creatinine Ratio 30.6 (12.0-20.0); Calcium, Blood 9.4 mg/dL (8.5-10.1); Creatinine, Blood 1.08 mg/dL (0.40-1.00); Potassium, Blood 4.7 mmol/L (3.5-5.5); Total Protein, Blood 7.4 g/dL (6.4-8.2)
[2024-09-09 01:10] VITALS: BP 164/89
== END 2024-09-09 01:28 | disposition home or self-care (01) ==
LOC: ER 18:35
PROVIDERS: Student in an Organized Health Care Education/Training Program
DX: N93.9 Abnormal uterine and vaginal bleeding, unspecified (principal); I10 Essential (primary) hypertension; E03.9 Hypothyroidism, unspecified; E11.9 Type 2 diabetes mellitus without complications; I25.2 Old myocardial infarction; Z86.73 Personal history of transient ischemic attack (TIA), and cerebral infarction without residual deficits; Z88.5 Allergy status to narcotic agent; Z88.8 Allergy status to other drugs, medicaments and biological substances
CPT/HCPCS: 70450; 80053; 85025; 93005; 93010; 99284-25

== ENCOUNTER 2025-05-05 15:36 | Emergency (ER) | payer MEDICARE ==
[~2025-05-05] VITALS: Ht 162.6 cm; Wt 90.7 kg
[2025-05-05 16:16] LABS: BASOPHILS ABSOLUTE AUTO 0.03 K/mm3 (0.00-0.23); BASOPHILS PERCENT AUTO 0 % (0-2); EOSINOPHILS ABSOLUTE AUTO 0.31 K/mm3 (0.00-0.68); EOSINOPHILS PERCENT AUTO 3 % (0-6); Hematocrit 38.5 % (33.0-51.0); Hemoglobin 12.9 g/dL (11.5-16.0); IMMATURE GRAN ABSOLUTE AUTO 0.02 K/mm3 (0.00-0.10); IMMATURE GRAN PERCENT AUTO 0 % (0-1); LYMPHOCYTES ABSOLUTE AUTO 1.73 K/mm3 (0.84-5.20); LYMPHOCYTES PERCENT AUTO 17 % (21-46); MONOCYTES ABSOLUTE AUTO 0.89 K/mm3 (0.16-1.47); MONOCYTES PERCENT AUTO 9 % (4-13); Mean Corpuscular HGB Conc 33.5 g/dL (31.5-36.5); Mean Corpuscular Volume 95 fL (80-100); NEUTROPHILS ABSOLUTE AUTO 7.33 K/mm3 (1.96-9.15); NEUTROPHILS PERCENT AUTO 71 % (41-73); NRBC ABSOLUTE 0.00 K/mm3 (0.00-0.02); NRBC Auto 0.0 /100 WBC (0.0-0.2); Platelet Count 219 K/mm3 (150-400); RDW Coefficient Variation 12.9 % (11.7-14.2); RDW Standard Deviation 44.8 fL (35.1-46.3)
[2025-05-05 16:34] LABS: Prothrombin Time Results 11.0 Sec (9.7-11.5)
[2025-05-05 16:42] LABS: Alanine Aminotransfer (ALT/SGP 20.0 U/L (12-78); Albumin, Blood 2.8 g/dL (3.4-5.0); Albumin/Globulin Ratio 0.7 (0.8-1.8); Anion Gap 8.0 mmol/L (3-11); Aspartate Aminotrans (AST/SGOT 20.0 U/L (12-37); Bilirubin, Total 0.4 mg/dL (0.1-1.0); Blood Urea Nitrogen 26.0 mg/dL (8-24); CO2, Blood 25.0 mmol/L (21-32); Calcium, Blood 8.7 mg/dL (8.5-10.1); Chloride, Blood 109.0 mmol/L (98-108); Creatinine, Blood 1.01 mg/dL (0.40-1.00); Globulin, Blood 4.0 g/dL (2.2-4.0); Glucose, Blood 127.0 mg/dL (70-99); Potassium, Blood 4.4 mmol/L (3.5-5.5); Sodium, Blood 138.0 mmol/L (136-145); Total Protein, Blood 6.8 g/dL (6.4-8.2)
[2025-05-05] MEDS ORDERED: HYDROcodone 5-APAP 325 TAB PO ONE (18:40)
[2025-05-05 21:31] VITALS: BP 152/75
== END 2025-05-05 22:06 | disposition home or self-care (01) ==
LOC: ER 15:36
PROVIDERS: Student in an Organized Health Care Education/Training Program
DX: S09.90XA Unspecified injury of head, initial encounter (principal); R53.1 Weakness; K59.00 Constipation, unspecified; K62.89 Other specified diseases of anus and rectum; E11.9 Type 2 diabetes mellitus without complications; Z90.710 Acquired absence of both cervix and uterus; Z88.5 Allergy status to narcotic agent; Z88.8 Allergy status to other drugs, medicaments and biological substances; Z95.0 Presence of cardiac pacemaker; I10 Essential (primary) hypertension; W19.XXXA Unspecified fall, initial encounter
CPT/HCPCS: 70450; 72192; 80053; 85025; 85610; 85730; 99284-25; A9270

== ENCOUNTER 2025-07-13 12:49 | Inpatient (IN) | payer MEDICARE ==
[~2025-07-13] VITALS: Ht 162.6 cm; Wt 82.1 kg
[2025-07-13 13:24] LABS: BASOPHILS ABSOLUTE AUTO 0.02 K/mm3 (0.00-0.23); BASOPHILS PERCENT AUTO 0 % (0-2); EOSINOPHILS ABSOLUTE AUTO 0.06 K/mm3 (0.00-0.68); EOSINOPHILS PERCENT AUTO 1 % (0-6); Hematocrit 41.7 % (33.0-51.0); Hemoglobin 14.0 g/dL (11.5-16.0); IMMATURE GRAN ABSOLUTE AUTO 0.02 K/mm3 (0.00-0.10); IMMATURE GRAN PERCENT AUTO 0 % (0-1); LYMPHOCYTES ABSOLUTE AUTO 0.65 K/mm3 (0.84-5.20); LYMPHOCYTES PERCENT AUTO 10 % (21-46); MONOCYTES ABSOLUTE AUTO 0.22 K/mm3 (0.16-1.47); MONOCYTES PERCENT AUTO 3 % (4-13); Mean Corpuscular HGB Conc 33.6 g/dL (31.5-36.5); Mean Corpuscular Volume 93 fL (80-100); NEUTROPHILS ABSOLUTE AUTO 5.77 K/mm3 (1.96-9.15); NEUTROPHILS PERCENT AUTO 86 % (41-73); NRBC ABSOLUTE 0.00 K/mm3 (0.00-0.02); NRBC Auto 0.0 /100 WBC (0.0-0.2); Platelet Count 201 K/mm3 (150-400); RDW Coefficient Variation 13.2 % (11.7-14.2); RDW Standard Deviation 45.0 fL (35.1-46.3)
[2025-07-13 14:01] LABS: Alanine Aminotransfer (ALT/SGP 19.0 U/L (12-78); Albumin, Blood 3.4 g/dL (3.4-5.0); Albumin/Globulin Ratio 0.9 (0.8-1.8); Anion Gap 6.0 mmol/L (3-11); Aspartate Aminotrans (AST/SGOT 19.0 U/L (12-37); Bilirubin, Total 0.9 mg/dL (0.1-1.0); Blood Urea Nitrogen 28.0 mg/dL (8-24); CO2, Blood 26.0 mmol/L (21-32); Calcium, Blood 8.9 mg/dL (8.5-10.1); Chloride, Blood 110.0 mmol/L (98-108); Creatinine, Blood 1.05 mg/dL (0.40-1.00); Globulin, Blood 3.6 g/dL (2.2-4.0); Glucose, Blood 133.0 mg/dL (70-99); Potassium, Blood 4.3 mmol/L (3.5-5.5); Sodium, Blood 138.0 mmol/L (136-145); Total Protein, Blood 7.0 g/dL (6.4-8.2)
[2025-07-13 14:25] LABS: Source, Urine Straight Cath
[2025-07-13 14:39] LABS: Bilirubin, Urine Neg (Neg); Color, Urine Yellow (P-Yellow); Glucose Qualitative, Urine Neg (Neg); Ketones, Urine Neg (Neg); Leukocyte Esterase, Urine 3+ (Neg); Protein, Urine 3+ (Neg); Specific Gravity, Urine 1.010 (1.003-1.022); Urobilinogen, Urine NORM (Normal)
[2025-07-13] MEDS ORDERED: CefTRIAXone Sodium 1,000 MG in NS 100 ML IV ONE (15:00)
[2025-07-13] MEDS ORDERED: FLU VACC TS2025(65UP)/MF59C/PF 45 MCG/0.5 ML SYRINGE IM SCH (15:55)
[2025-07-13] MEDS ORDERED: Insulin Human Lispro 100 Units/ML 3ML Syringe SC SCH (16:30)
[2025-07-13 17:37] VITALS: BP 180/90
--- NOTE | 2025-07-13 18:46 | NUR ---
PATIENT ORIENTED TO ROOM AND CALL LIGHT. SPOUSE IN ROOM WITH PATIENT. DINNER CAME FOR PATIENT AND PATIENT ATTEMPTED TO EAT. THIS RN ASKED IF PATIENT HAD A HISTORY OF STROKE PATIENT IS UNABLE TO MOVE LEFT ARM EASILY. PATIENT MISSING MOUTH WHEN ATTEMPTING TO EAT AND WHILE EATING WAS NOT SWALLOWING WELL. NOTICED PATIENT HAVING TROUBLE WITH WATER. WILL PASS ON IN REPORT PATIENT WOULD BENIFIT FROM A SWALLOW STUDY AND PT/OT EVAL.
[2025-07-13 19:43] VITALS: BP 158/85
[2025-07-14] VITALS (11 sets, daily range): BP systolic 140–202; BP diastolic 73–119
--- NOTE | 2025-07-14 06:45 | NUR ---
SHIFT SUMMARY PATIENT HAS WAXED AND WANED ORIENTATION A&O TO SELF AND PEOPLE. HAS BEEN MOSTLY COOPERATIVE AT BEGGINING OF SHIFT, HOWEVER, PROGRESSIVELY GOT MORE AGITATED AND ANXIOUS. HAD LITTLE URINE OUTPUT DURING SHIFT, WILL LET DAYSHIFT KNOW. PATIENT IS NOW ASLEEP. PATIENT DNEIES ALL PAIN, DISCOMFORT, OR ANY OTHER SIGNS OF DISTRESS. CALL LIGHT WITHIN REACH, BED RAILS UP X3, BED AT LOWEST POSITION, AND INCREASED ROUNDING TO ENSURE SAFETY, AND BED ALARM ON.
[2025-07-14 07:08] LABS: BASOPHILS ABSOLUTE AUTO 0.03 K/mm3 (0.00-0.23); BASOPHILS PERCENT AUTO 1 % (0-2); EOSINOPHILS ABSOLUTE AUTO 0.02 K/mm3 (0.00-0.68); EOSINOPHILS PERCENT AUTO 0 % (0-6); Hematocrit 42.3 % (33.0-51.0); Hemoglobin 14.7 g/dL (11.5-16.0); IMMATURE GRAN ABSOLUTE AUTO 0.01 K/mm3 (0.00-0.10); IMMATURE GRAN PERCENT AUTO 0 % (0-1); LYMPHOCYTES ABSOLUTE AUTO 0.93 K/mm3 (0.84-5.20); LYMPHOCYTES PERCENT AUTO 17 % (21-46); MONOCYTES ABSOLUTE AUTO 0.41 K/mm3 (0.16-1.47); MONOCYTES PERCENT AUTO 8 % (4-13); Mean Corpuscular HGB Conc 34.8 g/dL (31.5-36.5); Mean Corpuscular Volume 92 fL (80-100); NEUTROPHILS ABSOLUTE AUTO 4.08 K/mm3 (1.96-9.15); NEUTROPHILS PERCENT AUTO 74 % (41-73); NRBC ABSOLUTE 0.00 K/mm3 (0.00-0.02); NRBC Auto 0.0 /100 WBC (0.0-0.2); Platelet Count 204 K/mm3 (150-400); RDW Coefficient Variation 13.0 % (11.7-14.2); RDW Standard Deviation 44.0 fL (35.1-46.3)
[2025-07-14 07:30] LABS: Anion Gap 6.0 mmol/L (3-11); Blood Urea Nitrogen 23.0 mg/dL (8-24); CO2, Blood 27.0 mmol/L (21-32); Calcium, Blood 8.9 mg/dL (8.5-10.1); Chloride, Blood 109.0 mmol/L (98-108); Creatinine, Blood 0.83 mg/dL (0.40-1.00); Glucose, Blood 134.0 mg/dL (70-99); Potassium, Blood 4.2 mmol/L (3.5-5.5); Sodium, Blood 138.0 mmol/L (136-145)
[2025-07-14] MEDS ORDERED: Labetalol HCL 5 MG/ML 4ML Injection (Single Dose) IV PRN (09:00)
[2025-07-14] MEDS ORDERED: Enoxaparin 40 MG/0.4 ML SYR SC SCH (09:00)
[2025-07-14] MEDS ORDERED: NS 250 ML IV PRN (11:45)
[2025-07-14] MEDS ORDERED: CefTRIAXone Sodium 1,000 MG in NS 100 ML IV SCH (12:00)
--- NOTE | 2025-07-14 13:08 | NUR ---
1300 BLADDER SCAN COMPLETED DUE TO NO URINE OUTPUT INTO THE [place]. BLADDER SCAN 319. PATIENT WAS COMBATIVE AND USED A CLOSED FIST TO HIT RN IN THE ARM. ENCOURAGED PATIENT TO NOT HIT NURSING STAFF. CALL TO DR. MOODY FOR FURTHER INSTRUCTION ON URINE RETENTION.
--- NOTE | 2025-07-14 13:10 | NUR ---
[address] MOODY AND DR. STUART REGARDING PATIENT RETAINING URINE AND PATIENT COMBATIVENESS. ADVISED PROVIDERS OF THE 319 BLADDER SCAN AND NO URINE OUTPUT SO FAR THIS SHIFT. DR. STUART ADVISED TO WAIT 2 MORE HOURS BEFORE ATTEMPTING ANOTHER SCAN OR FURTHER INTERVENTION. I WILL CONTINUE TO ENCOURAGE THE PATIENT TO TRY TO URINATE.
--- NOTE | 2025-07-14 13:22 | NUR ---
[address] STUART TO REPORT TROPONIN JUMP TO [id number]
--- NOTE | 2025-07-14 15:16 | NUR ---
CALL TO DR MOODY AT [address] MOODY TO ADVISE OF PATIENT BLOOD PRESSURE NOT RESPONDING TO IV LABETALOL. PROVIDER WILL PLACE ORDERS FOR ORAL HOME MEDICATIONS.
[2025-07-14] MEDS ORDERED: NS 1,000 ML IV SCH (16:00)
--- NOTE | 2025-07-14 18:28 | NUR ---
SHIFT SUMMARY PATIENT IS A&OX2-3. SHE WAS TREATED FOR AGITATION WITH ZYPREXA BY THE VOCATIONAL CHILDCARE TEACHER AND WOKE FROM THIS WITH AGITATION AND WAS SWINGING CLOSED FIST AT RN AND MADE CONTACT. PATIENT IS ALERT AND IN A GOOD MOOD NOW. SHE IS COOPERATING WITH CARE WELL. SHE WAS RETAINING URINE AND SO A CATHERINE CATHETER WAS PLACED WITHOUT COMPLICATION. FLUIDS ARE RUNNING AT 125ML/HOUR X1. SHE IS ON BED REST DUE TO CONFUSION. ROOM AIR, TELEMETRY AV PACED IN THE 60'S. FATHER AND SON CURRENTLY AT THE BEDSIDE. BED IS LOW AND LOCKED, CALL LIGHT IN REACH.
--- NOTE | 2025-07-15 03:39 | NUR ---
SHIFT SUMMARY PATIENT WAS PLESANT AT THE START OF SHIFT AND MORE ORIENTED, HOWEVER, LIKE LAST NOC SHIFT, PATIENT A&O STATUS WAXED AND WANED, AND BECAME MORE AGITATED AGAIN. PATIENT AFTER SETTLING DOWN WITH PASSAGE OF TIME. PATIENT IS ASLEEP CURRENTLY. BED RAILS UP X3, BED ALARM IS ON, CALL LIGHT WITHIN REACH, AT BEDSIDE. CATHERINE IS DRAINING YELLOW URINE.
[2025-07-15 04:20] VITALS: BP 199/67
[2025-07-15 05:20] LABS: BASOPHILS ABSOLUTE AUTO 0.04 K/mm3 (0.00-0.23); BASOPHILS PERCENT AUTO 1 % (0-2); EOSINOPHILS ABSOLUTE AUTO 0.26 K/mm3 (0.00-0.68); EOSINOPHILS PERCENT AUTO 3 % (0-6); Hematocrit 42.3 % (33.0-51.0); Hemoglobin 14.1 g/dL (11.5-16.0); IMMATURE GRAN ABSOLUTE AUTO 0.01 K/mm3 (0.00-0.10); IMMATURE GRAN PERCENT AUTO 0 % (0-1); LYMPHOCYTES ABSOLUTE AUTO 1.76 K/mm3 (0.84-5.20); LYMPHOCYTES PERCENT AUTO 23 % (21-46); MONOCYTES ABSOLUTE AUTO 0.96 K/mm3 (0.16-1.47); MONOCYTES PERCENT AUTO 13 % (4-13); Mean Corpuscular HGB Conc 33.3 g/dL (31.5-36.5); Mean Corpuscular Volume 94 fL (80-100); NEUTROPHILS ABSOLUTE AUTO 4.66 K/mm3 (1.96-9.15); NEUTROPHILS PERCENT AUTO 61 % (41-73); NRBC ABSOLUTE 0.00 K/mm3 (0.00-0.02); NRBC Auto 0.0 /100 WBC (0.0-0.2); Platelet Count 205 K/mm3 (150-400); RDW Coefficient Variation 13.1 % (11.7-14.2); RDW Standard Deviation 45.1 fL (35.1-46.3)
[2025-07-15 06:06] LABS: Magnesium, Blood 1.8 mg/dL (1.6-2.4)
[2025-07-15 07:23] LABS: Alanine Aminotransfer (ALT/SGP 21.0 U/L (12-78); Albumin, Blood 3.1 g/dL (3.4-5.0); Albumin/Globulin Ratio 0.9 (0.8-1.8); Anion Gap 6.0 mmol/L (3-11); Aspartate Aminotrans (AST/SGOT 24.0 U/L (12-37); Bilirubin, Total 0.3 mg/dL (0.1-1.0); Blood Urea Nitrogen 28.0 mg/dL (8-24); CO2, Blood 29.0 mmol/L (21-32); Calcium, Blood 8.8 mg/dL (8.5-10.1); Chloride, Blood 110.0 mmol/L (98-108); Creatinine, Blood 0.99 mg/dL (0.40-1.00); Globulin, Blood 3.5 g/dL (2.2-4.0); Glucose, Blood 105.0 mg/dL (70-99); Potassium, Blood 4.2 mmol/L (3.5-5.5); Sodium, Blood 141.0 mmol/L (136-145); Total Protein, Blood 6.6 g/dL (6.4-8.2)
[2025-07-15 07:53] VITALS: BP 179/74
[2025-07-15 10:34] VITALS: BP 145/70
[2025-07-15 14:48] VITALS: BP 155/70
--- NOTE | 2025-07-15 15:05 | NUR ---
CALLED DR. STUART AT 1500 TO INQUIRE ABOUT TRENDING THE TROPONIN LEVEL DOWN ON THIS PATIENT SINCE THE LAST ONE WAS DRAWN YESTERDAY WITH A VALUE OF 1527. DR. STUART ADVISED THERE DOESN'T NEED TO BE ANYMORE TRENDING BECAUSE THEY WERE COMING DOWN.
--- NOTE | 2025-07-15 16:54 | NUR ---
SHIFT SUMMARY PATIENT IS A&OX2 ONLY TODAY. HALLUCINATIONS AND WORD SALAD. SHE IS PLEASANT, HOWEVER, AND COOPERATIVE WITH CARE. SHE HAD TROUBLE WITH SWALLOWING REGULAR WATER THIS MORNING, HAS NOT BEEN ASSESSED BY SPEECH THERAPY AT THIS TIME. HER PRESSURES HAVE STABILIZED WITH ORAL BLOOD PRESSURE MEDICATIONS, SHE IS TAKING THESE IN NECTAR THICKENED WATER AND HANDLING THIS WELL. TELEMETRY IS RUNNING AV PACED IN THE 60'S. AND DAUGHTER ARE CURRENTLY AT THE BEDSIDE. BED IS LOW AND LOCKED, CALL LIGHT IN REACH.
[2025-07-15 19:22] VITALS: BP 165/67
[2025-07-15 23:47] VITALS: BP 112/100
[2025-07-16] VITALS (7 sets, daily range): BP systolic 126–177; BP diastolic 47–101
--- NOTE | 2025-07-16 03:31 | NUR ---
SHIFT SUMMARY PATIENT HAS HAD CONTINUED DIFFERING LEVELS OF CONFUSION, HOWEVER WITH MEDS PER EMAR HAS BEEN ABLE TO SLEEP BETTER THAN LAST NOC SHIFT. CALL LIGHT WITHIN REACH, BED RAILS UP X3 AT LOWEST LEVEL, BED ALARM ON, NO DISTRESS NOTED.
--- NOTE | 2025-07-16 05:18 | NUR ---
NPO PATIENT NOW MADE NPO DUE TO ASPIRATION RISK. 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 SPEECH EVALUATION NEEDED, DAY SHIFT WILL BE INFORMED
[2025-07-16 06:03] LABS: BASOPHILS ABSOLUTE AUTO 0.04 K/mm3 (0.00-0.23); BASOPHILS PERCENT AUTO 0 % (0-2); EOSINOPHILS ABSOLUTE AUTO 0.22 K/mm3 (0.00-0.68); EOSINOPHILS PERCENT AUTO 2 % (0-6); Hematocrit 43.0 % (33.0-51.0); Hemoglobin 14.3 g/dL (11.5-16.0); IMMATURE GRAN ABSOLUTE AUTO 0.03 K/mm3 (0.00-0.10); IMMATURE GRAN PERCENT AUTO 0 % (0-1); LYMPHOCYTES ABSOLUTE AUTO 1.45 K/mm3 (0.84-5.20); LYMPHOCYTES PERCENT AUTO 15 % (21-46); MONOCYTES ABSOLUTE AUTO 0.89 K/mm3 (0.16-1.47); MONOCYTES PERCENT AUTO 9 % (4-13); Mean Corpuscular HGB Conc 33.3 g/dL (31.5-36.5); Mean Corpuscular Volume 94 fL (80-100); NEUTROPHILS ABSOLUTE AUTO 6.80 K/mm3 (1.96-9.15); NEUTROPHILS PERCENT AUTO 72 % (41-73); NRBC ABSOLUTE 0.00 K/mm3 (0.00-0.02); NRBC Auto 0.0 /100 WBC (0.0-0.2); Platelet Count 176 K/mm3 (150-400); RDW Coefficient Variation 13.2 % (11.7-14.2); RDW Standard Deviation 45.0 fL (35.1-46.3)
[2025-07-16 06:31] LABS: Anion Gap 11.0 mmol/L (3-11); Blood Urea Nitrogen 27.0 mg/dL (8-24); CO2, Blood 22.0 mmol/L (21-32); Calcium, Blood 8.6 mg/dL (8.5-10.1); Chloride, Blood 112.0 mmol/L (98-108); Creatinine, Blood 0.84 mg/dL (0.40-1.00); Glucose, Blood 112.0 mg/dL (70-99); Potassium, Blood 5.3 mmol/L (3.5-5.5); Sodium, Blood 140.0 mmol/L (136-145)
[2025-07-16] MEDS ORDERED: NS 1,000 ML IV SCH (16:55)
--- NOTE | 2025-07-16 17:00 | NUR ---
PALLIATIVE CARE CONSULT: CONSULT RECEIVED FOR ADVANCED CARE PLANNING. REVIEWED MEDICAL RECORD. PT HAS NO POLST OR AD ON FILE. POLST THROUGH [facility] SIGNED BY PATIENT ON 06/16/22 STATES CPR. LIMITED TREATMENT. ACCORDING TO DR. LEWIS ON H&P, HE SPENT TIME DISCUSSING ADVANCED CARE PLANNING AND PT TO REMAIN A FULL CODE. TODAY'S PROGRESS NOTE INDICATES SHE WILL DISCHARGE HOME TOMORROW PENDING IMPROVED MENTATION AND SWALLOW EVAL. WILL FOLLOW-UP AFTER SWALLOW EVAL TOMORROW.
--- NOTE | 2025-07-16 18:10 | NUR ---
SHIFT SUMMARY PATIENT IS A&OX3. SHE IS COMMUNICATING MORE CLEARLY THAN YESTERDAY, HOWEVER, SHE DID SLEEP UNTIL 1230 TODAY, WHICH MADE HER MISS THE OPPORTUNITY TO SEE SPEECH THERAPY. SHE IS STILL STRUGGLING WITH SWALLOWING BUT HAS BEEN ABLE TO TAKE ESSENTIAL BLOOD PRESSURE MEDICTIONS BY CRUSHING AND MIXING WITH SMALL AMOUNTS OF THICKENED JUICE WHICH IS THEN PLACED IN A 1ML SYRINGE AND GIVEN SLOWLY WITH PATIENT AT 45 DEGREE ANGLE AND ENCOURAGED TO PLACE CHIN TO CHEST. SHE IS ON ROOM AIR, TELE RUNNING AV PACED IN THE 60'S. CATHERINE CATHETER IN PLACE DRAINING CLEAR YELLOW URINE TO GRAVITY. PT WORKED WITH PATIENT TODAY, SHE WAS UNABLE TO STAND, DID SIT AT THE SIDE OF BED AND DANGLE. SHE IS A LIFT TO THE CHAIR. AND DAUGHTER AT THE BEDSIDE. SPEECH IS SUPPOSED TO GET WITH THE PATIENT TOMORROW FOR SURE, SHE IS NOT TAKING PO FOODS, BUT HAS NS RUNNING AT 100. SHE HAD A BED BATH TODAY. HER BED IS LOW AND LOCKED, CALL LIGHT IS WITHIN REACH.
[2025-07-17] VITALS (8 sets, daily range): BP systolic 142–181; BP diastolic 58–89
--- NOTE | 2025-07-17 04:24 | NUR ---
SHIFT SUMMARY PATIENT A&OX1-2, HAS SLEPT DECENTLY, AT BEDSIDE, HAD A SMALL BM, CALL LIGHT WITHIN REACH, BED AT LOWEST LEVEL, BED RAILS UP X3, BED ALARM ON. PLESANTLY CONFUSED. CT PERFORMED, IF NEW INFARCT INSPECTED MRI IS A POTENTIAL PER RADIOLOGY REPORT.
[2025-07-17 05:33] LABS: BASOPHILS ABSOLUTE AUTO 0.05 K/mm3 (0.00-0.23); BASOPHILS PERCENT AUTO 0 % (0-2); EOSINOPHILS ABSOLUTE AUTO 0.10 K/mm3 (0.00-0.68); EOSINOPHILS PERCENT AUTO 1 % (0-6); Hematocrit 37.5 % (33.0-51.0); Hemoglobin 13.2 g/dL (11.5-16.0); IMMATURE GRAN ABSOLUTE AUTO 0.05 K/mm3 (0.00-0.10); IMMATURE GRAN PERCENT AUTO 0 % (0-1); LYMPHOCYTES ABSOLUTE AUTO 1.89 K/mm3 (0.84-5.20); LYMPHOCYTES PERCENT AUTO 16 % (21-46); MONOCYTES ABSOLUTE AUTO 1.44 K/mm3 (0.16-1.47); MONOCYTES PERCENT AUTO 12 % (4-13); Mean Corpuscular HGB Conc 35.2 g/dL (31.5-36.5); Mean Corpuscular Volume 92 fL (80-100); NEUTROPHILS ABSOLUTE AUTO 8.18 K/mm3 (1.96-9.15); NEUTROPHILS PERCENT AUTO 70 % (41-73); NRBC ABSOLUTE 0.00 K/mm3 (0.00-0.02); NRBC Auto 0.0 /100 WBC (0.0-0.2); Platelet Count 194 K/mm3 (150-400); RDW Coefficient Variation 13.0 % (11.7-14.2); RDW Standard Deviation 43.3 fL (35.1-46.3)
[2025-07-17 06:00] LABS: Anion Gap 9.0 mmol/L (3-11); Blood Urea Nitrogen 23.0 mg/dL (8-24); CO2, Blood 23.0 mmol/L (21-32); Calcium, Blood 8.3 mg/dL (8.5-10.1); Chloride, Blood 113.0 mmol/L (98-108); Creatinine, Blood 0.87 mg/dL (0.40-1.00); Glucose, Blood 123.0 mg/dL (70-99); Potassium, Blood 3.8 mmol/L (3.5-5.5); Sodium, Blood 141.0 mmol/L (136-145)
[2025-07-17] MEDS ORDERED: GABA100 PO (12:22)
[2025-07-17] MEDS ORDERED: LEVO-T75 MC1 PO (12:22)
--- NOTE | 2025-07-17 18:47 | NUR ---
SUMMARY- PT A/O X2, LABILE MOOD AND WAKEFULNESS. NAPPED FREQ DURING THE DAY BUT AWAKENS EASILY. PT HAS SLURRED SPEECH AND ALERT TO PLACE AND FAMILY. PT ANSWERS SIMPLE QUESTIONS. BEDREST PT UNABLE TO STAND RELATED TO WEAKNESS. TURNED ROUTINE, WAFFLE MATTRESS IN USE. SKIN INTACT. PT HAD MULT LOOSE BM'S THIS SHIFT. CATHERINE DC'D 1330 NO VOID YET. PT HAD SWALLOW EVAL AND PLACED ON PUREE/NEC THICK FLUID. TOOK MED CRUSHED. ELEVATED BP RESPONDING WELL TO ORAL BP MEDS PRESCRIBED. PLAN FOR [facility] SWALLOW STUDY TOMORROW 07/18 AND LIKELY DC HOME FROM HOSP WITH HH. IN ROOM AND DAUGHTER SUPPORTIVE IN CARE. WILL REPORT TO NOC RN
[2025-07-18 03:45] VITALS: BP 164/53
[2025-07-18 05:10] LABS: BASOPHILS ABSOLUTE AUTO 0.04 K/mm3 (0.00-0.23); BASOPHILS PERCENT AUTO 0 % (0-2); EOSINOPHILS ABSOLUTE AUTO 0.33 K/mm3 (0.00-0.68); EOSINOPHILS PERCENT AUTO 3 % (0-6); Hematocrit 39.1 % (33.0-51.0); Hemoglobin 13.2 g/dL (11.5-16.0); IMMATURE GRAN ABSOLUTE AUTO 0.03 K/mm3 (0.00-0.10); IMMATURE GRAN PERCENT AUTO 0 % (0-1); LYMPHOCYTES ABSOLUTE AUTO 1.58 K/mm3 (0.84-5.20); LYMPHOCYTES PERCENT AUTO 14 % (21-46); MONOCYTES ABSOLUTE AUTO 0.84 K/mm3 (0.16-1.47); MONOCYTES PERCENT AUTO 8 % (4-13); Mean Corpuscular HGB Conc 33.8 g/dL (31.5-36.5); Mean Corpuscular Volume 93 fL (80-100); NEUTROPHILS ABSOLUTE AUTO 8.25 K/mm3 (1.96-9.15); NEUTROPHILS PERCENT AUTO 74 % (41-73); NRBC ABSOLUTE 0.00 K/mm3 (0.00-0.02); NRBC Auto 0.0 /100 WBC (0.0-0.2); Platelet Count 195 K/mm3 (150-400); RDW Coefficient Variation 13.0 % (11.7-14.2); RDW Standard Deviation 44.2 fL (35.1-46.3)
[2025-07-18 05:37] LABS: Alanine Aminotransfer (ALT/SGP 21.0 U/L (12-78); Albumin, Blood 2.8 g/dL (3.4-5.0); Albumin/Globulin Ratio 0.7 (0.8-1.8); Anion Gap 8.0 mmol/L (3-11); Aspartate Aminotrans (AST/SGOT 20.0 U/L (12-37); Bilirubin, Total 0.7 mg/dL (0.1-1.0); Blood Urea Nitrogen 23.0 mg/dL (8-24); CO2, Blood 25.0 mmol/L (21-32); Calcium, Blood 8.3 mg/dL (8.5-10.1); Chloride, Blood 112.0 mmol/L (98-108); Creatinine, Blood 0.91 mg/dL (0.40-1.00); Globulin, Blood 3.8 g/dL (2.2-4.0); Glucose, Blood 116.0 mg/dL (70-99); Potassium, Blood 3.9 mmol/L (3.5-5.5); Sodium, Blood 141.0 mmol/L (136-145); Total Protein, Blood 6.6 g/dL (6.4-8.2)
[2025-07-18 06:24] VITALS: BP 178/71
--- NOTE | 2025-07-18 06:38 | NUR ---
SHIFT SUMMARY PATIENT ALERT, ORIENTED TO SELF AND PERSON. INTERMITTENTLY ORIENTED TO PLACE. CONFUSED, DIFFICULT TO REORIENT, LABILE MOODS AND BECOMES COMBATITIVE WITH STAFF WITH THE INCREASED CONFUSION. PATIENT VOIDING THROUGHOUT SHIFT POST CATHERINE REMOVED 07/17 AT 1330. MULTIPLE VOIDS THIS SHIFT, INCONTINENT OF BOWEL AND BLADDER. PATIENT PULLED IV TO LEFT ARM. NEW IV PLACED TO [facility], NS RUNNING PER OCT. PLAN FOR BARIUM SWALLOW STUDY TODAY. PATIENT'S SPOUSE, JEAN, AT BEDSIDE THROUGHOUT THE NIGHT. REPOSITIONED Q2 HOURS. NO OTHER CONCERNS AT THIS TIME.
[2025-07-18 06:51] VITALS: BP 156/70
[2025-07-18 07:37] VITALS: BP 138/92
--- NOTE | 2025-07-18 10:29 | NUR ---
PER ANAID FROM 07/17/25, WHO IS AGAIN HERE TODAY WORKING WITH PATIENT, CATHETER REMOVED YESTERDAY AT 1230.
[2025-07-18 11:06] VITALS: BP 150/72
[2025-07-18 14:57] VITALS: BP 152/98
[2025-07-19 04:11] VITALS: BP 147/76
--- NOTE | 2025-07-19 04:55 | NUR ---
SHIFT SUMMARY PT A&OX1-2. LABILE MOOD, COMBATIVE WITH CARES THROUGHOUT NIGHT, BITING, SCRATCHING, HITTING AT STAFF. BEDREST MOBILITY. WAFFLE MATTRESS IN USE. URINARY RETENTION. LAST INCONTINENT VOID 07/18 AT 1600. BLADDER SCAN AT 0430 307, PER PROTOCOL, WILL CONTINUE TO MONITOR. PUREE DIET WITH NECTAR THICK LIQUIDS. MEDS CRUSHED WITH APPLESAUCE. NS@75. WILL MONITOR CLOSELY.
[2025-07-19 05:22] LABS: BASOPHILS ABSOLUTE AUTO 0.04 K/mm3 (0.00-0.23); BASOPHILS PERCENT AUTO 0 % (0-2); EOSINOPHILS ABSOLUTE AUTO 0.26 K/mm3 (0.00-0.68); EOSINOPHILS PERCENT AUTO 2 % (0-6); Hematocrit 35.9 % (33.0-51.0); Hemoglobin 12.0 g/dL (11.5-16.0); IMMATURE GRAN ABSOLUTE AUTO 0.03 K/mm3 (0.00-0.10); IMMATURE GRAN PERCENT AUTO 0 % (0-1); LYMPHOCYTES ABSOLUTE AUTO 1.26 K/mm3 (0.84-5.20); LYMPHOCYTES PERCENT AUTO 11 % (21-46); MONOCYTES ABSOLUTE AUTO 0.92 K/mm3 (0.16-1.47); MONOCYTES PERCENT AUTO 8 % (4-13); Mean Corpuscular HGB Conc 33.4 g/dL (31.5-36.5); Mean Corpuscular Volume 94 fL (80-100); NEUTROPHILS ABSOLUTE AUTO 8.67 K/mm3 (1.96-9.15); NEUTROPHILS PERCENT AUTO 78 % (41-73); NRBC ABSOLUTE 0.00 K/mm3 (0.00-0.02); NRBC Auto 0.0 /100 WBC (0.0-0.2); Platelet Count 213 K/mm3 (150-400); RDW Coefficient Variation 12.9 % (11.7-14.2); RDW Standard Deviation 44.0 fL (35.1-46.3)
[2025-07-19 05:50] LABS: Alanine Aminotransfer (ALT/SGP 15.0 U/L (12-78); Albumin, Blood 2.4 g/dL (3.4-5.0); Albumin/Globulin Ratio 0.7 (0.8-1.8); Anion Gap 8.0 mmol/L (3-11); Aspartate Aminotrans (AST/SGOT 13.0 U/L (12-37); Bilirubin, Total 0.5 mg/dL (0.1-1.0); Blood Urea Nitrogen 18.0 mg/dL (8-24); CO2, Blood 24.0 mmol/L (21-32); Calcium, Blood 8.3 mg/dL (8.5-10.1); Chloride, Blood 114.0 mmol/L (98-108); Creatinine, Blood 0.88 mg/dL (0.40-1.00); Globulin, Blood 3.5 g/dL (2.2-4.0); Glucose, Blood 125.0 mg/dL (70-99); Potassium, Blood 4.1 mmol/L (3.5-5.5); Sodium, Blood 142.0 mmol/L (136-145); Total Protein, Blood 5.9 g/dL (6.4-8.2)
[2025-07-19] MEDS ORDERED: CefTRIAXone Sodium 1,000 MG in NS 100 ML IV ONE ×2 (07:25→10:45)
[2025-07-19 07:33] VITALS: BP 135/90
[2025-07-19 10:48] VITALS: BP 153/124
--- NOTE | 2025-07-19 11:21 | NUR ---
NOTIFIED MD OF BLADDER SCAN GREATER THAN [address] GASPAR TO REVIEW WITH LEAD HOSPITALIST OF PLAN OF CARE. TO HOLD OFF ON STRAIGHT CATH FOR NOW UNTIL SHE CAN SPEAK WITH THEM, SHE CONTINUES TO BE COMBATIVE WITH STAFF. NO PRN'S AVAIL, ALL WERE DC'D THEY SEEM TO MAKE HER VERY LETHARGIC AND POTENTIALLY MORE CONFUSED PER DR. GASPAR.
[2025-07-19 16:17] VITALS: BP 162/62
--- NOTE | 2025-07-19 19:19 | NUR ---
SUMMARY PT DROWSY THIS AM, DID NOT INITIALLY WANT TO TAKE ORAL MEDS HOWEVER AFTER PT WOKE UP A BIT MORE SHE WAS COOPERATIVE IN TAKING THEM CRUSHED IN APPLESUACE. TAMSULOSIN HELD DUE TO INABILITY TO CRUSH OR OPEN CAPSULE. PT DID NOT DO WELL WITH BREAKFAST, UNABLE TO PROPERLY CHEW MINCED AND MOIST DIET EVEN WITH DENTURES IN, DOWNGRADED TO PUREED DIET. MILDLY THICKENED LIQUIDS. BLADDER SCAN COMPLETED THIS AM AND WAS GREATER THAN 400. STRAIGHT CATH COMPLETED AND DRAINED 420. BLADDER SCAN THIS EVENING WAS LESS THAN 200. PT MORE ALERT THIS AFTERNOON, COOPERATIVE WITH CARE. NO BEHAVIORAL ISSUES. PLEASE REFRAIN FROM IM ZYPREXA USE SHE IS VERY SENSITIVE TO EVEN THE LOW DOSE. PT TOLERATING TURNS BY STAFF. HEELS OFFLOADED WITH PINK FOAM HEEL BOOTS. PENDING SNF PLACEMENT. RECEIVED LAST DOSE OF IV ANTIBIOTICS TODAY. IV NS INFUSION AT 75.
[2025-07-19 20:54] VITALS: BP 146/58
--- NOTE | 2025-07-20 03:33 | NUR ---
SHIFT SUMMARY PT A&OX1-2. LABILE MOOD. INTERMITTINGLY COMBATIVE WITH CARES. ROOM AIR. URINARY RETENTION. BLADDER SCAN COMPLETE AT 0029 WITH 129ML RETAINED URINE. PT INCONTINENT OR BOWEL AND BLADDER. PUREE DIET WITH NECTAR THICK LIQUIDS. MEDS CRUSHED WITH APPLESAUCE. NS@75. WAFFLE MATTRESS. BEDREST WITH Q2 TURNS. HEEL BOOTS IN PLACE. CXR COMPLETED 07/19, POSSIBLE PNEUMONIA DUE TO ASPIRATION. LIKELY DISCHARGING TO SNF HOWEVER PT CANNOT BE DISCHARGED IF SHE IS COMBATIVE. IS AT BEDSIDE AND VERY SUPPORTIVE WITH CARE. WILL CONTINUE TO MONITOR AND REPORT TO DAY RN.
[2025-07-20 04:53] VITALS: BP 144/70
[2025-07-20 05:04] LABS: BASOPHILS ABSOLUTE AUTO 0.04 K/mm3 (0.00-0.23); BASOPHILS PERCENT AUTO 0 % (0-2); EOSINOPHILS ABSOLUTE AUTO 0.25 K/mm3 (0.00-0.68); EOSINOPHILS PERCENT AUTO 3 % (0-6); Hematocrit 32.6 % (33.0-51.0); Hemoglobin 11.0 g/dL (11.5-16.0); IMMATURE GRAN ABSOLUTE AUTO 0.03 K/mm3 (0.00-0.10); IMMATURE GRAN PERCENT AUTO 0 % (0-1); LYMPHOCYTES ABSOLUTE AUTO 1.58 K/mm3 (0.84-5.20); LYMPHOCYTES PERCENT AUTO 17 % (21-46); MONOCYTES ABSOLUTE AUTO 0.99 K/mm3 (0.16-1.47); MONOCYTES PERCENT AUTO 10 % (4-13); Mean Corpuscular HGB Conc 33.7 g/dL (31.5-36.5); Mean Corpuscular Volume 95 fL (80-100); NEUTROPHILS ABSOLUTE AUTO 6.70 K/mm3 (1.96-9.15); NEUTROPHILS PERCENT AUTO 70 % (41-73); NRBC ABSOLUTE 0.00 K/mm3 (0.00-0.02); NRBC Auto 0.0 /100 WBC (0.0-0.2); Platelet Count 207 K/mm3 (150-400); RDW Coefficient Variation 12.9 % (11.7-14.2); RDW Standard Deviation 45.1 fL (35.1-46.3)
[2025-07-20 05:33] LABS: Alanine Aminotransfer (ALT/SGP 15.0 U/L (12-78); Albumin, Blood 2.1 g/dL (3.4-5.0); Albumin/Globulin Ratio 0.6 (0.8-1.8); Anion Gap 8.0 mmol/L (3-11); Aspartate Aminotrans (AST/SGOT 12.0 U/L (12-37); Bilirubin, Total 0.5 mg/dL (0.1-1.0); Blood Urea Nitrogen 22.0 mg/dL (8-24); CO2, Blood 24.0 mmol/L (21-32); Calcium, Blood 8.2 mg/dL (8.5-10.1); Chloride, Blood 114.0 mmol/L (98-108); Creatinine, Blood 0.93 mg/dL (0.40-1.00); Globulin, Blood 3.5 g/dL (2.2-4.0); Glucose, Blood 118.0 mg/dL (70-99); Potassium, Blood 3.9 mmol/L (3.5-5.5); Sodium, Blood 142.0 mmol/L (136-145); Total Protein, Blood 5.6 g/dL (6.4-8.2)
[2025-07-20 13:54] VITALS: BP 153/86
[2025-07-20 16:33] VITALS: BP 145/62
--- NOTE | 2025-07-20 16:49 | NUR ---
PATIENT BEHAVIOR UPDATE DISCUSSED WITH DR ROTH ABOUT HOLDING SEROQUEL, PATIENT VERY SLEEPY TODAY. ATE BREAKFAST THIS MORNING, WAS UP FROM 0800 TO ABOUT 1100. SLEPT MOST OF THE REMAINING HOURS. SOMETIMES HARD TO WAKE. WORKED WITH PHYSICAL THERAPY FOR A SHORT TIME AND ONLY HAD A COUPLE OF BITES OF LUNCH BEFORE GOING BACK TO SLEEP. ASLEEP UNTIL 1640. AT BEDSIDE ALL DAY. STATES PATIENT IS [place] AND DOES NOT WEAR HEARING AIDS AT BEDTIME. SHE GETS SCARED AND CAN NOT UNDERSTAND WHAT IS HAPPENING AT NIGHT. TODAY, WE HAVE SPOKE SLOWLY, CALMLY AND WAITED FOR THE PATIENT TO RESPOND BEFORE TOUCHING HER OR PROVIDING CARE. PATIENT HAS BEEN COOPERATIVE ALL DAY AND COMPLAINT WITH CARE. WORKED WELL WITH PHYSICAL THERAPY. FOLLOWS COMMANDS WHEN ASKED.
--- NOTE | 2025-07-20 18:34 | NUR ---
END OF SHIFT PATIENT RESTING IN BED, A&O2 FOR MOST OF TODAY. SPOKE SLOWLY AND CALMLY WITH PATIENT, WAITING FOR RESPONSES FROM PATIENT PRIOR TO DOING CARE OR TOUCHING PATIENT. NO ISSUES WITH BEHAVIORS ON THIS SHIFT. PATIENTS AT BEDSIDE ALL DAY, STATES DANISH IS HER SECOND LANGUAGE AND SHE IS VERY [place]. HE REQUEST THAT WE TALK SLOWLY AND ALLOW TIME FOR THE PATIENT TO TRANSLATE IN HER BRAIN BEFORE MOVING ONTO THE NEXT THING. PATIENT HAS BEEN CALM AND NOT COMBATIVE THIS SHIFT. SPOKE WITH DR ROTH, DISCUSSED HOLDING THE SEROQUEL DUE TO THE PATIENT SLEEPING MOST OF THE DAY AND NOT HAVING BEHAVIOR ISSUES. DR ROTH AGREED, MEDICATION HELD AND AVAIABLE FOR TONIGHT IF NEEDED. REPORTED POOR OUTCOME LAST TIME SHE WAS GIVEN THIS MEDICATION, OVERNIGHT CAREGIVER REPORTED COMBATIVE BEHAVIOR AFTER THIS MEDICATION WAS GIVEN ALSO. ATTENDS IN PLACE. BEDBATH DONE. CALL LIGHT IN REACH. PROTIEN DRINK PROVIDED, PATIENT DID NOT EAT DINNER. PILLS CRUSHED IN [place] PUDDING. NO OTHER CONCERNS FOR THIS SHIFT.
[2025-07-20 19:25] VITALS: BP 175/82
[2025-07-20 21:24] VITALS: BP 138/98
[2025-07-21 05:25] VITALS: BP 143/74
--- NOTE | 2025-07-21 06:44 | NUR ---
PT'S REST WAS PRIORITIZED THIS EVENING FAMILY AND DAYSHIFT RN STATED SHE HAD HAD LITTLE REST. MOSTLY RESTFUL EVENING. PT PERFORMED POORLY SWALLOWING MEDICATION WITH REQUESTED PUDDING PT ASKED FOR SOMETHING THINNER LIKE WATER. PT INCONTINENT OF BLADDER, NO BM THIS SHIFT. PT REMAINS ON RA WITH NO TELEMETRY.PT TURNED Q4 SO TO MAXIMIZE REST PER MEDICAL TEAM.
[2025-07-21 07:28] VITALS: BP 151/66
--- NOTE | 2025-07-21 08:27 | NUR ---
CALLED AND SPOKE WITH MARVIN IN SPEECH THERAPY THIS MORNING REGARDING THE PATIENT. PATIENT IS CURRENTLY ALERT AND EATING BREAKFAST; PER MARVIN THE PATIENT CAN BE ON THIN LIQUIDS. ORDER UPDATED TO PUREED; REMOVED MILDLY THICK LIQUIDS.
--- NOTE | 2025-07-21 08:33 | NUR ---
PATIENT CHOKING/COUGHING DURING BREAKFAST WITH MILDLY THICK LIQUIDS. BREAKFAST STOPPED FOR NOW. LEFT MESSAGE WITH SPEECH THERAPY ON EVENT. BASED ON OBSERVATION ON PATIENT; NO SURE IF SHE WOULD DO WELL ON THIN LIQUIDS OR WITH STRAWS AT THIS TIME. BEING CAUTIONS WITH ORAL INTAKE AT THIS TIME AND HOLDING OFF ON MEDS UNTIL PATIENT HAS RECOVERED MORE FROM BREAKFAST.
--- NOTE | 2025-07-21 08:48 | NUR ---
UPDATED DR. SIMONS DURING ROUNDS ON CONCERNS WITH PATIENT'S CHOKING/COUGHING ON CURRENT DIET AND MILDLY THICK LIQUIDS AND THAT SPEECH HAS BEEN UPDATED WELL. UPDATED HIM THAT THE PATIENT DOES NOT CURRENTLY HAVE AN IV AND NOC SHIFT GOT A NO IV ACCESS ORDER ON THE PATIENT. PER DR. SIMONS OKAY TO CONTINUE NO IV ACCESS ORDER.
--- NOTE | 2025-07-21 13:11 | NUR ---
UPDATED DR. PALMER ON HOW WELL THAT PATIENT HAS BEEN DOING THIS AFTERNOON. SHE TOLERATED HER LUNCH WELL WITH THIN LIQUIDS AND FED HERSELF. SHE DOES NEED SUPERVISION/ASSISTANCE AT TIMES DO TO TAKE LARGE/FAST BITES. SHE IS ALSO MORE ALERT TODAY AND INTERACTIVE.
[2025-07-21 16:10] VITALS: BP 158/65
--- NOTE | 2025-07-21 16:50 | NUR ---
NATALIO HOSE APPLIED TO BILATEAL LOWER EXT FOR NANETTE FOOT SWELLING; R WORSE THAN L. ELEVATED LEGS WITH PILLOWS.
--- NOTE | 2025-07-21 18:49 | NUR ---
SHIFT SUMMARY; PT A/OX2 (SELF/PERSON), BEDREST, AND COOPERATIVE WITH CARE. PT REMAINS AWAKE FOR MOST THE SHIFT W/ AT BEDSIDE. PT HAD TROUBLE SWALLOWING THICKENED LIQUIDS THIS AM WITH BREAKFAST, HOWEVER DURING BEDSIDE SWALLOW SCREEN PRIOR TO MEDICATION ADMINISTRATION, PT ABLE TO TOLERATE PUDDING WELL. MEDICATION THAT ARE TO BE CRUSHED AND ONE WHOLE MEDICATION GIVEN. WHOLE PILL SWALLOWED W/ COFFEE THIS WAS EASIER FOR THE PT. DURING LUNCH, PT TOLERATED THIN LIQUIDS AND EATING WELL. BED IN LOW POSITION AND CALL LIGHT WITHIN REACH.
[2025-07-21 20:16] VITALS: BP 145/63
[2025-07-22 05:05] VITALS: BP 158/78
--- NOTE | 2025-07-22 07:20 | NUR ---
PT HAD NO ACUTE CHANGES OVERNIGHT, AOX2 NON COMBATIVE BUT NOT PLEASANT. COOPERATIVE WITH CARE BUT RELUCTANT. PT WAS GIVEN OPTIMAL AMOUNTS OF REST TURNED Q4 AND ATTENDS CHANGED WITH REPOSITIONING PER REQUEST OF PT.
[2025-07-22 07:39] VITALS: BP 177/74
[2025-07-22 15:51] VITALS: BP 160/89
--- NOTE | 2025-07-22 17:08 | NUR ---
SHIFT SUMMARY; PT A/OX 2-3 (SELF, PERSON, SITUATION) AND AT BEDREST. PT IS HAVING MORE DIFFICULTY WITH SWALLOWING THIN LIQUIDS AND PUREE FOODS THIS SHIFT. THIS WAS MORE NOTABLE UPON TRYING TO SWALLOW UNCRUSHABLE MEDICATION AND OBSERVED DURING LUNCH MEAL TIME. DR. ROTH NOTIFIED VIA PHONE AND SPEECH THERAPY REQUEST ADDED TO ORDERS. PT HAS INTERMITTEN CONFUSION THAT IS REDIRECTABLE. FAMILY AT BEDSIDE FOR MOST OF SHIFT. CASE MANAGEMENT AT BEDSIDE THIS SHIFT AND REQUEST TO PALLIATIVE CARE TO VISIT WITH PATIENT AND FAMILY. BED IN LOWEST POSITION AND CALL LIGHT WITHIN REACH.
[2025-07-22 20:14] VITALS: BP 172/81
[2025-07-23 04:36] VITALS: BP 177/66
--- NOTE | 2025-07-23 07:02 | NUR ---
NO ACUTE CHANGES OVERNIGHT, PT MUCH MORE PLEASANT WITH MORNING MED PASS WHEN COMPARED TO PREVIOUS SHIFTS.
[2025-07-23 07:58] VITALS: BP 170/79
[2025-07-23 08:27] LABS: BASOPHILS ABSOLUTE AUTO 0.04 K/mm3 (0.00-0.23); BASOPHILS PERCENT AUTO 1 % (0-2); EOSINOPHILS ABSOLUTE AUTO 0.18 K/mm3 (0.00-0.68); EOSINOPHILS PERCENT AUTO 2 % (0-6); Hematocrit 33.4 % (33.0-51.0); Hemoglobin 11.2 g/dL (11.5-16.0); IMMATURE GRAN ABSOLUTE AUTO 0.02 K/mm3 (0.00-0.10); IMMATURE GRAN PERCENT AUTO 0 % (0-1); LYMPHOCYTES ABSOLUTE AUTO 1.12 K/mm3 (0.84-5.20); LYMPHOCYTES PERCENT AUTO 13 % (21-46); MONOCYTES ABSOLUTE AUTO 0.87 K/mm3 (0.16-1.47); MONOCYTES PERCENT AUTO 10 % (4-13); Mean Corpuscular HGB Conc 33.5 g/dL (31.5-36.5); Mean Corpuscular Volume 94 fL (80-100); NEUTROPHILS ABSOLUTE AUTO 6.24 K/mm3 (1.96-9.15); NEUTROPHILS PERCENT AUTO 74 % (41-73); NRBC ABSOLUTE 0.00 K/mm3 (0.00-0.02); NRBC Auto 0.0 /100 WBC (0.0-0.2); Platelet Count 257 K/mm3 (150-400); RDW Coefficient Variation 12.7 % (11.7-14.2); RDW Standard Deviation 44.0 fL (35.1-46.3)
[2025-07-23 08:40] LABS: Anion Gap 12.0 mmol/L (3-11); Blood Urea Nitrogen 26.0 mg/dL (8-24); CO2, Blood 22.0 mmol/L (21-32); Calcium, Blood 8.3 mg/dL (8.5-10.1); Chloride, Blood 110.0 mmol/L (98-108); Creatinine, Blood 0.93 mg/dL (0.40-1.00); Glucose, Blood 125.0 mg/dL (70-99); Potassium, Blood 4.5 mmol/L (3.5-5.5); Sodium, Blood 139.0 mmol/L (136-145)
[2025-07-23 14:44] VITALS: BP 178/68
--- NOTE | 2025-07-23 19:35 | NUR ---
SHIFT SUMMARY; PT A/OX3 (SELF, PERSON, SITUATION) AND AT BEDREST. PT IS LIFT AT BASELINE. PT OBSERVED SWALLOWING THICKENED LIQUID AND SOFT PUREE FOODS. PT ABLE TO TAKE CRUSHED MEDICATIONS W/ PUDDING THIS AM, HOWEVER WHOLE MED WAS HELD. PT/OT AND CARE MANAGEMENT AT BEDSIDE THIS SHIFT. SEE ASSESSMENT NOTES.
--- NOTE | 2025-07-23 19:36 | NUR ---
DISCHARGE NOTE; PT TRTANSFERING FROM MEDICAL FLOOR TO [facility] VIA SCHEDULED RIDE WITH [facility]. PT TRANFERRED FROM BED TO WHEELCHAIR VIA LIFT. PT BELONGINGS GATHERED AND TAKEN WITH. AT BEDSIDE. PT LEFT ROOM AT APPROX 1745. [facility] CALLED HOWEVER REPORT UNABLE TO BE GIVEN. PACKET PROVIDED FOR TRANSPORT. PT DISCHARGED IN STABLE CONDITION.
== END 2025-07-23 18:05 | DRG 689 ==
LOC: ER 12:49 → MEDS 12:50 → ENPENDDIS 07-23 14:49 → MEDS 07-23 18:05
PROVIDERS: Emergency Medicine; Student in an Organized Health Care Education/Training Program; ADMIT Student in an Organized Health Care Education/Training Program
DX: N39.0 Urinary tract infection, site not specified (principal); G92.8 Other toxic encephalopathy; I21.A1 Myocardial infarction type 2; F05 Delirium due to known physiological condition; N17.9 Acute kidney failure, unspecified; R13.10 Dysphagia, unspecified; I12.9 Hypertensive chronic kidney disease with stage 1 through stage 4 chronic kidney disease, or unspecified chronic kidney disease; N18.30 Chronic kidney disease, stage 3 unspecified; E03.9 Hypothyroidism, unspecified; R33.9 Retention of urine, unspecified; E11.22 Type 2 diabetes mellitus with diabetic chronic kidney disease; I25.10 Atherosclerotic heart disease of native coronary artery without angina pectoris; E66.9 Obesity, unspecified; B96.20 Unspecified Escherichia coli [E. coli] as the cause of diseases classified elsewhere; Z79.890 Hormone replacement therapy; Z86.73 Personal history of transient ischemic attack (TIA), and cerebral infarction without residual deficits; Z88.5 Allergy status to narcotic agent; Z88.8 Allergy status to other drugs, medicaments and biological substances; I25.2 Old myocardial infarction; Z95.0 Presence of cardiac pacemaker; Z90.49 Acquired absence of other specified parts of digestive tract; Z68.30 Body mass index [BMI] 30.0-30.9, adult
CPT/HCPCS: 36415; 70450; 71045; 74230; 80048; 80053; 81001; 82550; 82947; 83735; 84443; 84484; 85025; 87077; 87086; 87186; 92526; 92610; 92611; 93306; 96365; 96366; 96372; 96375; 96376; 97110; 97161; 97166; 97530; 97535; 99285-25; A6590; A9270; G0378; J0696; J1650; J7030; J7050; P9612